=== PATIENT | female | born 1965 | race Caucasian/White ===

== ENCOUNTER 2025-01-23 11:53 | Emergency (ER) | payer OTHER, SELFPAY ==
--- OUTSIDE RECORDS SUMMARY | 2023-09-11 04:00 | XMS_ITS ---
Author Organization [facility] Address [address] [place], [place] [phone] Care Team Providers Care Folder Tier Name Role Phone Codey Raines DO Unavailable [phone] Migration, Provider Unavailable Unavailable REASON FOR VISIT EMR-Keenan Encounters Encounter Location Date Provider Diagnosis [facility] [address] [place], [place] [phone] 09/11/2023 Provider Migration Plan Of Treatment Next Appt Details Provider Name:Letitia arora, 01/29/2025 08:30:00 AM, [address], [facility] [address], [place], [place], [phone], Provider Name:Codey morales, 08/08/2025 09:15:00 AM, [address], [facility] [address], [place], [place], [phone], Progress Notes * GAIL BRYANTOB:[birth year] (59 yo F)Acc No.[id number]:09/11/2023 Patient: FRANCIA BUCHANANIL :1965 A ge:58 Y S ex:Female Address:[address] [facility] [address] Subjective: * Chief Complaints: * E MR-Keenan * Medical History: * Surgical History: * Hospitalization/Major Diagno stic Procedure: * Medications: Objective: * Vitals: * Physical Examination: Assessment: Plan: * Treatment: * Procedure Codes: * * Date:
--- OUTSIDE RECORDS SUMMARY | 2023-09-12 04:00 | XMS_ITS ---
Author Organization [facility] Address [address] [place], [place] [phone] Care Team Providers Care Automation And Controls Manager Name Role Phone Codey Raines DO Unavailable [phone] Migration, Provider Unavailable Unavailable Allergies Allergen (clinical drug ingredient) Drug/Non Drug Allergy documented on EMR Reaction Allergy Type Onset Date Status Substance with sulfonamide structure and antibacterial mechanism of action (substance) Sulfa Antibiotics Unknown Drug Allergy 12/09/2022 Active REASON FOR VISIT EMR-Keenan Medications Medication SIG (Take, Route, Frequency, Duration) Notes Start Date End Date Status Omeprazole 20 MG Oral 12/09/2022 Ac tive Mounjaro 7.5 MG/0.5ML Subcutaneous 12/09/2022 Active ATORVASTATIN *Reorder from [employer] for eRx and Interaction Alerts* 12/09/2022 Active Encounters Encounter Location Date Provider Diagnosis [facility] [address] [place], [place] [phone] 09/12/2023 Provider Migration Plan Of Treatment Next Appt Details Provider Name:Letitia arora, 01/29/2025 08:30:00 AM, [address], [address], [place], [place], [phone], Provider Name:Codey morales, 08/08/2025 09:15:00 AM, [address], [address], [place], [place], [phone], Progress Notes * GAIL BRYANTOB:[birth year] (59 yo F)Acc No.[id number]:09/12/2023 Patient: Boo NAPOLEON BLACK :1965 A ge:58 Y S ex:Female Address:[facility] [address], [facility] [address] Subjective: * Chief Complaints: * E MR-Keenan * Medical History: * Surgical History: * Hospitalization/Major Diagno stic Procedure: * Medications: T akingOmeprazole 20 MG Capsule Delayed Release Oral Mounjaro 7.5 MG/0.5ML Solution Pen-injector Subcutaneous ATORVASTATIN , Notes to Pharmacist: *Reorder from [facility] for eRx and Interaction Alerts*Taking Omeprazole 20 MG Capsule Delayed Release Oral Taking Mounjaro 7.5 MG/0.5ML Solution Pen-injector Subcutaneous Taking ATORVASTATIN , Notes to Pharmacist: *[facility] and Interaction Alert[facility]* * Allergies: S ulfa Antibiotics: Allergy - Onset Date 12/09/2022 Objective: * Vitals: * Physical Examination: Assessment: Plan: * Treatment: * Procedure Codes: * * Date:
--- OUTSIDE RECORDS SUMMARY | 2024-01-12 10:30 | XMS_ITS ---
Author Organization [facility] Address [address] [facility] [address] [place], [place] [phone] Care Team Providers Care Musical Engineer Name Role Phone Codey Raines DO Unavailable [phone] REASON FOR VISIT po-sleeve 3 years 2 months Encounters Encounter Location Date Provider Diagnosis [facility] [address] [facility] [address] [place], [place] [phone] 01/12/2024 Codey Raines Vitamin deficiency, unspecified E56.9 ; Postsurgical malabsorption, not elsewhere classified K91.2 ; Other specified personal risk factors, not elsewhere classified Z91.89 and S/P bariatric surgery Z98.84 Assessments Encounter Date Diagnosis (ICD Code) Assessment Notes Treatment Notes Treatment Clinical Notes Section Notes 01/12/2024 Vitamin deficiency, unspecified (ICD-10 - E56.9) 01/12/2024 Postsurgical malabsorption, not elsewhere classified (ICD-10 - K91.2) 01/12/2024 Other specified personal risk factors, not elsewhere classified (ICD-10 - Z91.89) 01/12/2024 S/P bariatric surgery (ICD-10 - Z98.84) Plan Of Treatment Pending Test Test Name Order Date LIPID PANEL, STANDARD (7600) 01/12/2024 IRON, TIBC AND FERRITIN PANEL (5616) COMPREHENSIVE METABOLIC PANEL (16469) CBC (H/H, RBC, INDICES, WBC, PLT) (1759) 01/12/2024 HEMOGLOBIN A1c (496) 01/12/2024 VITAMIN B12/FOLATE, SERUM PANEL (7065) 0 01/12/2024 TSH (899) 01/12/2024 VITAMIN D,25-OH,TOTAL,IA (31590) 024 ZINC (945) 01/12/2024 VITAMIN B1 (THIAMINE), SERUM/PLASMA, LC/ MS/MS (60639) 01/12/2024 Next Appt Details Provider Name:Letitia Taylor ulysses, 01/29/2025 08:30:00 AM, [address], [address], [place], [place], [phone], Provider Name:Codey Perfecto morales, 08/08/2025 09:15:00 AM, [address], [address], [place], [place], [phone], Progress Notes * ERMAGAIL AguilarOB:[birth year] (59 yo F)Acc No.[id number]:01/12/2024 Patient: Boo BRIANNAPOLEON PADILLA Provider: Boo Raines DO :1965 A ge:58 Y S ex:Female Date:01/12/2024 Address:[address] [place] [address] Subjective: * Chief Complaints: * 1 . Po-sleeve 3 years 2 months. * HPI: H istory of Present Illness: Visit: Lisandro natali since surgery: 3 Years 2 Months S urgical Procedure: S leeve Gastrectomy D ate of Surgery: 0 11/11/2020 Interval History: T he patient is a f emale presenting for bariatric postoperative follow-up. Since our last follow up she had bariatric labs drawn. P atient h as not been admitted to the hospital H as patient undergone any post-bariatric surgical operations or interventions? N o . P re-surgical Weight: 2 42 lb L ast Visit Weight: 1 63 lb T KEN'S WEIGHT: l b T otal Weight Loss (TBW): l b > Daily fluid/water intake = 4 0-60 ounces > Protein Intake is a dequate > Physical Activity: E xercising 1-3x/week a nd walking l ess than 5,000 steps/day COMORBIDITY EVALUATION : SHAWN Yes - using CPAP . GERD No . Hypertension Yes , - o ff BP medications Hyperlipidemia Yes - taking atorvastatin (Lipitor) , Diabetes Yes - Off diabetic medications , VTE No , Is Patient attending any support groups E ncouraged attendance . * ROS: G eneral / Constitutional: Chills d enies. F ever d enies. A llergy / Immunology: Blistering skin d enies. H EENT: Difficulty in swallowing d enies. N karla congestion?denies. E ndocrine: Cold intolerance d enies. E xcessive thirst d enies. R espiratory: Chest pain d enies. C ough d enies. ? C ardiovascular: Chest pain d enies. P alpitations d enies. W eakness d enies. G astrointestinal: Abdominal pain d enies. D iarrhea d enies. J aundice d enies. R ectal bleeding d enies. G enitourinary: Blood in the urine d enies. D ifficulty urinating d enies. M usculoskeletal: Limping gait d enies. W eakness d enies. B urning pain in lower legs d enies. P sychiatric: Auditory / visual hallucinations d enies. S ubstance abuse d enies. S uicidal thoughts d enies. R eview of Systems: Fever/Chills: N o. E levated HR: N o. B loating/hiccups: N o. S OB/cough/wheezing: N o. L ower extremity pain or swelling: N o.?Decreased UOP: N o. B owel function N ormal BMs without complaint. ? * Medical History: Objective: * Vitals: Past Vitals:* 01/12/2024 Wt:151, BMI:25.12, BP:122/83 * Examination: P hysical Exam: General: W ell-developed a dult in no acute distress Head: A traumatic, normocephalic . Neck: S upple, trachea midline. No cervical lymphadenopathy . Chest: Unlabored breathing without respiratory distress Heart: Normal rate and regular rhythm Abdomen: Soft, non-tender, Bowel sounds normal, No masses, no organomegaly Extremities: Warm and well perfused Psych G ood insight, good judgement, appropriate affect . Integumentary: W arm and dry . R eviewed any recent lab &/or imaging results w ith patient during visit today. Assessment: * Assessment: 1. V itamin deficiency, unspecified - E56.9 2 . P ostsurgical malabsorption, not elsewhere classified - K91.2 3 . O ther specified personal risk factors, not elsewhere classified - Z91.89 4 . S /P bariatric surgery - Z98.84 ? Plan: * Treatment: 2. P ostsurgical malabsorption, not elsewhere classified L AB: LIPID PANEL, STANDARD (7600) L AB: IRON, TIBC AND FERRITIN PANEL (5616) L AB: COMPREHENSIVE METABOLIC PANEL (82024) L AB: CBC (H/H, RBC, INDICES, WBC, PLT) (1759) L AB: HEMOGLOBIN A1c (496) L AB: VITAMIN B12/FOLATE, SERUM PANEL (7065) L AB: TSH (899) L AB: VITAMIN D,25-OH,TOTAL,IA (14182) L AB: ZINC (945) L AB: VITAMIN B1 (THIAMINE), SERUM/PLASMA, LC/MS/MS (37701) 3. O ther specified personal risk factors, not elsewhere classified L AB: LIPID PANEL, STANDARD (7600) L AB: IRON, TIBC AND FERRITIN PANEL (5616) L AB: COMPREHENSIVE METABOLIC PANEL (75914) L AB: CBC (H/H, RBC, INDICES, WBC, PLT) (1759) L AB: HEMOGLOBIN A1c (496) L AB: VITAMIN B12/FOLATE, SERUM PANEL (7065) L AB: TSH (899) L AB: VITAMIN D,25-OH,TOTAL,IA (17030) L AB: ZINC (945) L AB: VITAMIN B1 (THIAMINE), SERUM/PLASMA, LC/MS/MS (84369) 4. S /P bariatric surgery L AB: LIPID PANEL, STANDARD (7600) L AB: IRON, TIBC AND FERRITIN PANEL (5616) L AB: COMPREHENSIVE METABOLIC PANEL (38493) L AB: CBC (H/H, RBC, INDICES, WBC, PLT) (1759) L AB: HEMOGLOBIN A1c (496) L AB: VITAMIN B12/FOLATE, SERUM PANEL (7065) L AB: TSH (899) L AB: VITAMIN D,25-OH,TOTAL,IA (11406) L AB: ZINC (945) L AB: VITAMIN B1 (THIAMINE), SERUM/PLASMA, LC/MS/MS (73468) Forms: * Billing Information: * Visit Code: * Procedure Codes: * Electronic signature of Henri Raines DO, [id number] on 01/23/2025 at 01:54 PM CDT Sign off status: Pending * Provider: Boo Raines DO Date: 0 01/12/2024 Generated for Myles summers/Dulce/Alvin on: 1 01:54 PM CDT History and Physical Notes * HPI (History of Present Illness) Category Sub-Category Detail Notes Category Not es History of Present Illness Visit: Time since surgery:: 3 Years 2 Months Surgical Procedure:: Sleeve Gastrectomy Date of Surgery:: 11/11/2020 Interval History: The patient is a: female prese nting for bariatric postoperative follow-up. Since our last follow up she had bariatric labs d shayna. Patient: has not been admitted to the hospital Has patient undergone any po st-bariatric surgical operations or interventions?: No . Pre-surgical Weight:: 242 lb Last Visit Weight:: 163 lb TODAY'S WEIGHT:: lb Total Weight Loss (TBW):: lb > Daily fluid/water intake =: 40-60 ounc es > Protein Intake is: adequate > Physical Activity:: Exercising 1-3x/we ek and walking: less than 5,000 steps/day COMORBIDITY EVALUATION : SHAWN Yes - using CPAP . GERD No . Hypertension Yes , -: off BP medications Hyperlipidemia Yes - taking atorvastatin (Lipit or) , Diabetes Yes - Off diabetic medications , VTE No , Is Patient attending any support groups Encourag ed attendance: . Examination Category Sub-Category Detail Notes Category Not es Physical Exam General: Well-developed: adult in no acute distress Reviewed any recent lab &/or imaging results with patient during visit today. Chest: Unlabored breath ing without respiratory distress Abdomen: Soft, non-tender, [place] wel sounds normal, No masses, no organomegaly Extremities: Warm and well perfused Heart: Normal rate and regular rhythm Psych Good insight, good j udgement, appropriate affect: . Integumentary: Warm and dry: . Head: Atraumatic, normocephalic: . Neck: Supple, trachea midl ine. No cervical lymphadenopathy: .
--- OUTSIDE RECORDS SUMMARY | 2024-07-15 04:00 | XMS_ITS ---
Author Organization [facility] Address [address] [place] [address] Care Team Providers Care Costume Shop Manager Name Role Phone MaryEric simon Unavailable [phone] Migration, Provider Unavailable Unavailable REASON FOR VISIT EMR-Keenan Encounters Encounter Location Date Provider Diagnosis [facility] [place] [address] [facility] [place] [phone] 07/15/2024 Prov ider Migration Plan Of Treatment No Information Progress Notes * GAIL BRYANTOB:[birth year] (59 yo F)Acc No.[id number]:07/15/2024 Patient: Boo NAPOLEON BLACK :1965 A ge:59 Y S ex:Female Address:[facility] [address] [facility] [address] Subjective: * Chief Complaints: * E MR-Keenan * * Date:
--- OUTSIDE RECORDS SUMMARY | 2024-07-16 04:00 | XMS_ITS ---
Author Organization [facility] Address [address] [place], [place] [address] Care Team Providers Care Gas Cutting Machine Operator Name Role Phone Eric Lang Unavailable [phone] Migration, Provider Unavailable Unavailable Allergies Allergen (clinical drug ingredient) Drug/Non Drug Allergy documented on EMR Reaction Allergy Type Onset Date Status Substance with sulfonamide structure and antibacterial mechanism of action (substance) Sulfa Antibiotics Unknown Drug Allergy Active REASON FOR VISIT EMR-Keenan Medications Medication SIG (Take, Route, Frequency, Duration) Notes Start Date End Date Status Atorvastatin Calcium 20 MG Tablet Oral 08/31/2022 Active atorvastatin *Reorder from [employer] for eRx and Interaction Alerts* 08/31/2022 Active buPROPion HCl ER (XL) 150 MG Tablet Extended Release 24 Hour Oral 08/31/2022 Active OneTouch Verio Strip In Vitro 08/31/2022 Active Social History Social History Additional Details Category Social Info Options Details Migrated Social History Migrated Social History Alcohol Intake: Occasional 08/31/2022,Tobacco Years: Never smoker 08/28/2022 Encounters Encounter Location Date Provider Diagnosis [facility] [address] [facility] [place] [phone] 07/16/2024 Prov ider Migration Plan Of Treatment No Information Progress Notes * GAIL BRYANTOB:[birth year] (59 yo F)Acc No.[id number]:07/16/2024 Patient: NAPOLEON BUCHANAN :1965 A ge:59 Y S ex:Female Address:[address] [place] [address], [address] Subjective: * Chief Complaints: * E MR-Keenan * Medical History: Problems: Anxiety Diabetes mellitus Endometrial hyperplasia Human papilloma virus infection Hypertensive disorder Menometrorrhagia Obesity Premenstrual dysphoric disorder * Keg Filler History: M igrated GynHistory M igrated GYNHistory:: Abnormal Pap: N Modified Date:08/31/2022,Age at First Child: 23 Modified Date:08/31/2022,Age at Menarche: 49 Modified Date:08/28/2022, Control at End of Visit: Ablation Modified Date:08/31/2022,Current Control Method: None Modified Date:08/31/2022,Date of LMP: 09/20/2012 Modified Date:08/28/2022,Date of Last Mammogram: 05/29/2021 Modified Date:08/28/2022,Date of Last Pap Smear: 11/30/2016 Modified Date:08/28/2022,Desired Control Method: Ablation Modified Date:08/31/2022,HPV Vaccine: N Modified Date:08/28/2022,Hormone Replacement Therapy: N Modified Date:08/31/2022,On BCPs at Conception: N Modified Date:08/31/2022,Post Menopausal Bleeding: N Modified Date:08/31/2022,STIs/STDs: N Modified Date:08/28/2022,Sexual Problems: N Modified Date:08/31/2022,Sexually Active: Y Modified Date:08/28/2022 . * Surgical History: Bariatric surgery Colonoscopy Colposcopy (538123429) Endometrial ablation Extraction of wisdom tooth (94013865) Hysteroscopy x3 Marsupialization of bartholin's gland (941219262) Procedure on gallbladder (837499100) * Family History: M igrated Family History: Unspecified Relation: Hypercholesterolemia , Osteoporosis . F ather: Family history of diabetes mellitus type 2 , Heart disease . M other: Hypertensive disorder , Osteoporosis . P aternal Grandfather: Heart disease . S ister: Family history of diabetes mellitus type 2 . * Social History: M igrated Social History: M igrated Social History: Alcohol Intake: Occasional 08/31/2022,Tobacco Years: Never smoker 08/28/2022. * Medications: T akingAtorvastatin Calcium 20 MG Tablet Oral buPROPion HCl ER (XL) 150 MG Tablet Extended Release 24 Hour Oral OneTouch Verio Strip In Vitro atorvastatin , Notes to Pharmacist: *Reorder from [facility] for eRx and Interaction Alerts*Taking Atorvastatin Calcium 20 MG Tablet Oral Taking buPROPion HCl ER (XL) 150 MG Tablet Extended Release 24 Hour Oral Taking OneTouch Verio Strip In Vitro Taking atorvastatin , Notes to Pharmacist: *Reorder from [facility] for eRx and Interaction Alerts* * Allergies: S ulfa Antibiotics: Allergy * * Date:
--- OUTSIDE RECORDS SUMMARY | 2025-01-10 09:00 | XMS_ITS ---
Author Organization [facility] Address [address] [place], [place] [id number] Care Team Providers Care Remedial Project Manager Name Role Phone Codey Raines DO Unavailable [phone] Allergies Allergen (clinical drug ingredient) Drug/Non Drug Allergy documented on EMR Reaction Allergy Type Onset Date Status Latex Latex rash, itching Allergy Active Substance with sulfonamide structure and antibacterial mechanism of action (substance) Sulfa Antibiotics Unknown Drug Allergy 12/09/2022 Active Medications Medication SIG (Take, Route, Frequency, Duration) Notes Start Date End Date Status Mounjaro 10 MG/0.5ML as directed Subcutaneous 12/09/2022 Unknown ATORVASTATIN *Reorder from [employer] for eRx and Interaction Alerts* 12/09/2022 Unknown Calcium Unknown Omeprazole 20 MG Oral 12/09/2022 Un known Levsin 0.125 MG 1 tablet as needed Orally every 8 hrs; Duration: 30 days 01/12/2025 02/11/2025 Active Multivitamin - 1 tablet Orally Once a day Unknown buPROPion HCl ER (XL) 150 MG 1 tablet in the morning Orally Once a day Unknown Problems Problem Type SNOMED Code ICD Code Onset Dates Problem Status W/U Status Risk Notes Problem Vitamin deficiency (87217993) Vitamin deficiency, unspecified (E56.9) Active confirmed Problem Post-surgical malabsorption (disorder) (937579340) Postsurgical malabsorption, 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) Active confirmed Vital Signs Temperature 97.8 degrees Fahrenheit 01/11/20 25 Blood pressure systolic 166 mm Hg 01/11/20 25 Blood pressure diastolic 103 mm Hg 025 Heart Rate 100 /min 01/10/2025 Height 65.00 in 01/10/2025 Weight 153 lbs 01/10/2025 BMI 25.46 kg/m2 01/10/2025 Oximetry 98 % 01/10/2025 Height-cm 165.1 cm 01/10/2025 Weight-kg 69.4 kg 01/10/2025 Encounters Encounter Location Date Provider Diagnosis [facility] [address] [place], [place] [id number] 01/10/2025 Codey Olu Vitamin deficiency, unspecified E56.9 ; Postsurgical malabsorption, not elsewhere classified K91.2 ; Other specified personal risk factors, not elsewhere classified Z91.89 ; S/P bariatric surgery Z98.84 and Overweight E66.3 Assessments Encounter Date Diagnosis (ICD Code) Assessment Notes Treatment Notes Treatment Clinical Notes Section Notes 01/10/2025 Vitamin deficiency, unspecified (ICD-10 - E56.9) 01/10/2025 Postsurgical malabsorption, not elsewhere classified (ICD-10 - K91.2) 01/10/2025 Other specified personal risk factors, not elsewhere classified (ICD-10 - Z91.89) 01/10/2025 S/P bariatric surgery (ICD-10 - Z98.84) 01/10/2025 Overweight (ICD-10 - E66.3) Plan Of Treatment Medication Medication Name Sig Start Date Stop Date Notes Levsin 0.125 MG 1 tablet as needed O rally every 8 hrs; Duration: 30 days 01/12/2025 02/11/2025 Pending Test Test Name Order Date LIPID PANEL, STANDARD (7600) 01/10/2025 IRON, TIBC AND FERRITIN PANEL (5616) COMPREHENSIVE METABOLIC PANEL (78091) CBC (H/H, RBC, INDICES, WBC, PLT) (1759) 01/10/2025 HEMOGLOBIN A1c (496) 01/10/2025 VITAMIN B12/FOLATE, SERUM PANEL (7065) 0 01/10/2025 TSH (899) 01/10/2025 VITAMIN D,25-OH,TOTAL,IA (44520) 025 ZINC (945) 01/10/2025 VITAMIN B1 (THIAMINE), SERUM/PLASMA, LC/ MS/MS (37096) 01/10/2025 Next Appt Details Follow Up: 6 Months, Reason: Provider Name:Letitia Haddad Brandon arora, 01/29/2025 08:30:00 AM, [address] [facility] [address], [place], [place], [phone], Provider Name:Codey Perfecto morales, 08/08/2025 09:15:00 AM, [address], [place], [place], [phone], Procedure Notes * Category Sub-Category Detail Notes Post Operative Plan Education: Emphasized e xercise and activity expectations; goal of 10,000 steps/day & 150 active min/wk. Reiterated importance of drinking at least 64 oz fluid & taking in at least 60-90g protein daily: . Patient understands the bridget y postop vitamin requirements: MVI, calcium + Vit D (1,500IU), folate 100mg, and any other vitamin supplements as needed based on laboratory monitoring. Reviewed appropriate eating habits and food choices: . Reminded patient that surger y is not a magic fix for weight loss: it is hard work and requires many behavioral changes to be successful. Encouraged patient follow with their PCP regularly, especially regarding medication changes: ; to see a counselor if mental health concerns arise; and continue to follow-up with bariatric elevator operator. There are no barriers to education today: . DISPOSITION: Return in: 6 months for follo w-up visit. Patient also instructed to h ave repeat labs drawn prior to next postop follow-up visit; orders placed: CBC w/diff, CMP, Vit B1, Folate, Vit B12, iron/TIBC, lipid panel, 25-Hydroxy, HbA1C, zinc. The patient is encouraged to call the clinic with any questions or concerns in the meantime. The patient demonstrates understanding and is amendable to the above outlined plan: . Progress Notes * GAIL BRYANTOB:[birth year] (59 yo F)Acc No.[id number]:01/10/2025 Patient: FRANCIA BUCHANANIL Provider: Boo Raines DO :1965 A ge:59 Y S ex:Female Date:01/10/2025 Address:[facility] [address], [address], [id number] Subjective: * Chief Complaints: * * HPI: H istory of Present Illness: Visit: Raghu hurst since surgery: 4 Years 2 Months S urgical Procedure: S leeve Gastrectomy D ate of Surgery: 0 11/11/2020 Interval History: T rashaad patient is a f emale presenting for bariatric postoperative follow-up. Since our last follow- up, raghu hines been taking bariatric vitamins and raghu hines not had bariatric vitamin labs drawn. > INTERVAL ISSUES/CONCERNS: n one H as patient been admitted to the hospital??No H as patient undergone any post-bariatric surgical operations or interventions? N o P re-surgical Weight: 2 42 lb L ast Visit Weight: 1 51 lb T KEN'S WEIGHT: 1 53 lb T otal Weight Loss (TBW): 8 9 lb % TBW Lost: 3 6.8 % > Daily fluid/water intake = 4 0-60 ounces > Protein Intake is a dequate > Physical Activity: W alking less than 10,000 steps/day COMORBIDITY EVALUATION : SHAWN Yes - no longer requiring CPAP at night following weight loss s/p bariatric surgery GERD No Hypertension No Hyperlipidemia No Diabetes Yes - No longer requiring medication for diabetes s/p bariatric surgery VTE No Is Patient attending any support groups E ncouraged attendance . Does patient take any medications for weight loss? - N o * ROS: G eneral / Constitutional: Chills [...] BMs without complaint. ? * Medical History: A nxiety, Arthritis, Gastroesophageal reflux disease, Obstructive sleep apnea, Post operative nausea and vomiting, Skin cancer, basal cell, Hyperlipidemia. * Surgical History: L ap Sleeve Gastrectomy, Dr. Raines 11/11/2020, Cholecystectomy 2009. * Medications: U nknown Multivitamin - Tablet 1 tablet Orally Once a day , Unknown buPROPion HCl ER (XL) 150 MG Tablet Extended Release 24 Hour 1 tablet in the morning Orally Once a day , Unknown Calcium , Unknown Omeprazole 20 MG Capsule Delayed Release Oral , Unknown Mounjaro 10 MG/0.5ML Solution Pen-injector as directed Subcutaneous , Unknown ATORVASTATIN , Notes to Pharmacist: *Reorder from [facility] for eRx and Interaction Alerts* * Allergies: S ulfa Antibiotics: Allergy - Onset Date 12/09/2022, Latex: rash, itching. Objective: * Vitals: W t:153, Ht:65.00, BMI:25.46, Oxygen sat %:98, HR:100, BP:166/103, Temp:97.8, Wt-k.4, Ht-cm:165.1, Body Surface Area:1.78. Past Vitals:* 01/12/2024 Wt:151, BMI:25.12, BP:122/83 * [...] during visit today. Assessment: * Assessment: 1. P ostsurgical malabsorption, not elsewhere classified - K91.2 (Primary) 2 .?Vitamin deficiency, unspecified - E56.9 3 . O ther specified personal risk factors, not elsewhere classified - Z91.89 4 . S /P bariatric surgery - Z98.84 5. O verweight - E66.3 Plan: * Treatment: 2. V itamin deficiency, unspecified L AB: LIPID PANEL, STANDARD (7600) L AB: IRON, TIBC AND FERRITIN PANEL (5616) L AB: COMPREHENSIVE METABOLIC PANEL (69758) L AB: CBC (H/H, RBC, INDICES, WBC, PLT) (1759) L AB: HEMOGLOBIN A1c (496) L AB: VITAMIN B12/FOLATE, SERUM PANEL (7065) L AB: TSH (899) L AB: VITAMIN D,25-OH,TOTAL,IA (40824) L AB: ZINC (945) L AB: VITAMIN B1 (THIAMINE), SERUM/PLASMA, LC/MS/MS (46318) 3. O ther specified personal risk factors, not elsewhere classified L AB: LIPID PANEL, STANDARD (7600) L AB: IRON, TIBC AND FERRITIN PANEL (5616) L AB: COMPREHENSIVE METABOLIC PANEL (92483) L AB: CBC (H/H, RBC, INDICES, WBC, PLT) (1759) L AB: HEMOGLOBIN A1c (496) L AB: VITAMIN B12/FOLATE, SERUM PANEL (7065) L AB: TSH (899) L AB: VITAMIN D,25-OH,TOTAL,IA (63462) L AB: ZINC (945) L AB: VITAMIN B1 (THIAMINE), SERUM/PLASMA, LC/MS/MS (42605) 4. S /P bariatric surgery L AB: LIPID PANEL, STANDARD (7600) L AB: IRON, TIBC AND FERRITIN PANEL (5616) L AB: COMPREHENSIVE METABOLIC PANEL (91999) L AB: CBC (H/H, RBC, INDICES, WBC, PLT) (1759) L AB: HEMOGLOBIN A1c (496) L AB: VITAMIN B12/FOLATE, SERUM PANEL (7065) L AB: TSH (899) L AB: VITAMIN D,25-OH,TOTAL,IA (46940) L AB: ZINC (945) L AB: VITAMIN B1 (THIAMINE), SERUM/PLASMA, LC/MS/MS (61629) * Procedures: P ost Operative Plan: Education: E mphasized exercise and activity expectations; goal of 10,000 steps/day & 150 active min/wk. Reiterated importance of drinking at least 64 oz fluid & taking in at least 60-90g protein daily . P atient understands the daily postop vitamin requirements: MVI, calcium + Vit D (1,500IU), folate 100mg, and any other vitamin supplements as needed based on laboratory monitoring. Reviewed appropriate eating habits and food choices . R eminded patient that surgery is not a magic fix for weight loss: it is hard work and requires many behavioral changes to be successful. Encouraged patient follow with their PCP regularly, especially regarding medication changes ; t o see a counselor if mental health concerns arise; and continue to follow-up with bariatric elevator operator. There are no barriers to education today . DISPOSITION: R eturn in 6 months for follow-up visit. P atient also instructed to have repeat labs drawn prior to next postop follow-up visit; orders placed: CBC w/diff, CMP, Vit B1, Folate, Vit B12, iron/TIBC, lipid panel, 25-Hydroxy, HbA1C, zinc. The patient is encouraged to call the clinic with any questions or concerns in the meantime. The patient demonstrates understanding and is amendable to the above outlined plan . U pper GI if symptons persist. * Follow Up: 6 Months * Billing Information: * Visit Code: 80359 Office Visit, Est Pt., Level 4. * Procedure Codes: * Electronic signature of Henri Raines DO, [id number] on 01/23/2025 at 01:53 PM CDT Sign off status: Pending * Provider: Boo Raines DO Date: 0 01/10/2025 Generated for Myles summers/Dulce/Bryceitting on: 01:53 PM CDT History and Physical Notes * HPI (History of Present Illness) Category Sub-Category Detail Notes Category Not es History of Present Illness Visit: Time since surgery:: 4 Years 2 Months Surgical Procedure:: Sleeve Gastrectomy Date of Surgery:: 11/11/2020 Interval History: The patient is a: female prese keiing for bariatric postoperative follow-up. Since our last follow-up, they: have been taking bariatri c vitamins and they: have not had bariatric vitami n labs drawn. > INTERVAL ISSUES/CONCERNS:: none Has patient been admitted to the [facility]?: No Has patient undergone any po st-bariatric surgical operations or interventions?: No Pre-surgical Weight:: 242 lb Last Visit Weight:: 151 lb TODAY'S WEIGHT:: 153 lb Total Weight Loss (TBW):: 89 lb %TBW Lost:: 36.8 % > Daily fluid/water intake =: 40-60 ounc es > Protein Intake is: adequate > Physical Activity:: Walkin g less than 10,000 steps/day COMORBIDITY EVALUATION : SHAWN Yes - no longer requ iring CPAP at night following weight loss s/p bariatric surgery GERD No Hypertension No Hyperlipidemia No Diabetes Yes - No longer requ iring medication for diabetes s/p bariatric surgery VTE No Is Patient attending any support groups Encour ed attendance: . Does patient take any medica tions for weight loss? -: No Examination Category Sub-Category Detail Notes Category Not [...]
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
[2025-01-23 11:59] VITALS: BP 150/78; PULSE 106; RESP 18; TEMP 36.5; O2SAT 98
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
[2025-01-23 13:37] VITALS: BP 138/72; PULSE 78; RESP 18; O2SAT 98
--- OUTSIDE RECORDS SUMMARY | 2025-01-23 13:53 | XMS_ITS | Encounter Summary ---
Author Organization [facility] Address [address] Attn: [place] [address] Care Team Providers Care Land Surveyor Manager Name Role Phone Juan Smith MD Primary Care Provider Encounter Details Date Type Department Care Team (Late st Contact Info) Description 10/28/1990 Outpatient Historical Po Das MD NO ADDRESS ON FILE Social History Tobacco Use Types Packs/Day Years Used Date Smoking Tobacco: Never Assessed Comments Unknown Sex and Gender Information Value Date Recorded Sex Assigned at Not on file Legal Sex Female 3:53 AM ACADEMIC GUIDANCE SPECIALIST Gender Identity Not on file Sexual Orientation Not on file documented as of this encounter Plan of Treatment Upcoming Encounters Date Type Department Care Team (Late st Contact Info) Description 03/29/2025 9:00 AM ACADEMIC GUIDANCE SPECIALIST Office Visit [facility] [address] [facility] [address] [place] [phone] Juan Smith MD [address] [place], [place] [address] [place] [address] 09/20/2025 11:00 AM CDT Office Visit [facility] [address] [facility] [address], [place] [address] Juan Smith MD [address] [place], [place] [address] [place] [address] documented as of this encounter Visit Diagnoses Not on filedocumented in this encounter Care Teams Land Surveyor Manager Relationship Specialty Start Date End Date Juan Smith MD [address] [place] [phone] PCP - General 10/07/07 documented as of this encounter
--- OUTSIDE RECORDS SUMMARY | 2025-01-23 13:53 | XMS_ITS | Encounter Summary ---
Author Organization [facility] Address [address] [facility] Attn: [place] [address] Care Team Providers Care Inspector [employer] Name Role Phone Juan Smith MD Primary Care Provider Encounter Details Date Type Department Care Team (Late st Contact Info) Description 12/27/1990 Outpatient Historical Po Das MD NO ADDRESS ON FILE Social History Tobacco Use Types Packs/Day Years Used Date Smoking Tobacco: Never Assessed Comments Unknown Sex and Gender Information Value Date Recorded Sex Assigned at Not on file Legal Sex Female 3:53 AM CHEF & OWNER Gender Identity Not on file Sexual Orientation Not on file documented as of this encounter Plan of Treatment Upcoming Encounters Date Type Department Care Team (Late st Contact Info) Description 03/29/2025 9:00 AM CHEF & OWNER Office Visit [facility] [address] [facility] [address] [place] [phone] Juan Smith MD [address] [place], [place] [address] [place] [address] 09/20/2025 11:00 AM CDT Office Visit [facility] [address] [facility] [address], [place] [address] Juan Smith MD [address] [place], [place] [address] [place] [address] documented as of this encounter Visit Diagnoses Not on filedocumented in this encounter Care Teams Inspector [employer] Relationship Specialty Start Date End Date Juan Smith MD [address] [place] [id number] PCP - General 10/07/07 documented as of this encounter
--- OUTSIDE RECORDS SUMMARY | 2025-01-23 13:53 | XMS_ITS | Clinical Summary ---
Author Organization [facility] Address [address] [place] [id number] Care Team Providers Care Manager Name Role Phone Juan Smith MD Primary Care Provider [phone] Allergies Active Allergy Reactions Criticality Noted Date Comments Diclofenac Other (See comments),Unknown Low 04/05/2012 Stomach pain Stomach pain Latex Anxiety,Itching,Rash Medium 11/22/2020 Naltrexone-Bupropion Dizziness Low 11/30/2016 Sulfa (Sulfonamide Antibiotics) Anaphylaxis High 06/20/2004 Medications atorvastatin (LIPITOR) 20 mg tablet Take 1 tablet (20 mg total) by mouth nightly 2 Active OneTouch Verio test strips strip 2 (two) times a day 2 Active buPROPion XL (WELLBUTRIN XL) 150 mg 24 hr tablet 2 Active clotrimazole-be tamethasone (LOTRISONE) cream Apply topically 2 (two) times a day 0 Active omeprazole (PriLOSEC) 20 mg capsule 2 Active calcium carbonate-vitam in D3 1500 mg (600 mg elemental) -200 units per tablet Take by mouth Active ALPRAZolam (XANAX) 0.25 mg tablet 3 Active Mounjaro 7.5 mg/0.5 mL pen injector 10 mg 3 Active tiZANidine (ZANAFLEX) 4 mg tablet Take 1 tablet (4 mg total) by mouth 2 (two) times a day as needed 3 Active cetirizine HCl (ZYRTEC ORAL) Take by mouth Ac tive Active Problems Problem Noted Date Diagnosed Date Primary osteoarthritis of one knee, right 2021 Ingrowing nail 09/04/2016 Type 2 diabetes mellitus wit hout complication, without long-term current use of insulin 01/24/2016 Severe obesity (BMI 35.0-39.9) with comorbidity 07/11/2015 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/2014 Plantar fasciitis 11/19/2014 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 Primary localized osteoarthrosis of ankle and fo ot 09/28/2012 Foot pain 02/25/2012 Posterior tibial tendonitis 02/25/2012 Surgical History Surgery Date Site/Laterality Comments BARIATRIC SURGERY 04/19/2020 - 04/18/2021 N/A Gastric Sleeve Medical History Medical History Date Comments Anxiety Hypertension Sleep apnea, obstructive Hypercholesteremia Family History Medical History Relation Name Comments Cancer Daughter Teo Diabetes Father Michele Heart disease Father Michele Hypertension Father Michele Arthritis Mother Gloria Hypertension Mother Gloria Arthritis Sister Gloria Hinson Cancer Sister Gloria Hinson Diabetes Sister Gloria Hinson Hypertension Sister Gloria Hinson Relation Name Status Comments Daughter Teo Bautista Mother Gloria Sister Gloria Hinson Social History Tobacco Use Types Packs/Day Years Used Date Smoking Tobacco: Never Smokeless Tobacco: Never AUDIT-C Answer Date Recorded Q1: How often do you have a drink containing alcohol? Never 08/17/2022 Q2: How many drinks containi ng alcohol do you have on a typical day when you are drinking? Patient does not drink Q3: How often do you have si x or more drinks on one occasion? 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 Not on file Not on file Not on f ile Obstetrics History Last Filed Vital Signs Vital Sign Reading Time Taken Comments Blood Pressure - - Pulse - - Temperature - - Respiratory Rate - - Oxygen Saturation - - Inhaled Oxygen Concentration - - Weight 68.9 kg (152 lb) 04/14/2024 11:30 AM PROCUREMENT ANALYST Height 165.1 cm (5' 5) 04/14/2024 11:30 AM PROCUREMENT ANALYST Body Mass Index 25.29 04/14/2024 11:30 AM PROCUREMENT ANALYST Plan of Treatment Health Maintenance Due Date Last Done Comments Albumin Creatinine Ratio, Urine 1966 Cervical Cancer Screening 1966 Colon Cancer Screening-Colonoscopy 1966 Depression Screening 1966 Hepatitis C Screening 1966 eGFR 1966 Dilated Eye Exam 1966 Foot Exam 1966 Lipid Panel 1966 Hepatitis B Screening 1984 Regular Well Visit/Exam 18-64 1984 Zoster Vaccine (1 of 2) 2016 Pneumococcal vaccine <65 (2 of 2 - PCV) 04/08/2018 04/08/2017 Breast Cancer Screening-Mammogram 07/02/2023 023 Hemoglobin A1C 11/03/2023 05/05/2023, 10/17, 11/12/2021, Additional history exists Covid-19 Vaccine (4 - 2024-2 6 season) 2024 03/11/2021, 07/22/2020, 06/28/2020 Influenza Vaccine (#1) 2024 , 12/30/2020, 12/30/2020, Additional history exists DTaP/Tdap/Td Vaccine (3 - Td or Tdap) 09/24/2030 09/24/2020, 08/01/2009 Insurance CHOICE PLUS [place] [id number] [facility] CHOICE PLUS [place] [phone] Care Teams Manager Relationship Specialty Start Date End Date Juan Smith MD [address] [facility] [address] [place] [address] PCP - General Critical Care Med 09/03/21
--- OUTSIDE RECORDS SUMMARY | 2025-01-23 13:53 | XMS_ITS | Encounter Summary ---
Author Organization [facility] Address [address] [place] [address] Care Team Providers Care Office Helper Name Role Phone Juan Smith MD Primary Care Provider [phone] Encounter Details Date Type Department Care Team (Late st Contact Info) Description 06/05/2003 Outpatient Historical [facility] [place] [facility] [address] [facility] [address] [place] [address] Juan Smith MD [address] [place], [place] [address] [place] [address] Social History Tobacco Use Types Packs/Day Years Used Date Smoking Tobacco: Never Assessed Comments Unknown Sex and Gender Information Value Date Recorded Sex Assigned at Not on file Legal Sex Female 3:53 AM COMPUTER ANALYST SUPERVISOR Gender Identity Not on file Sexual Orientation Not on file documented as of this encounter Plan of Treatment Upcoming Encounters Date Type Department Care Team (Late st Contact Info) Description 03/29/2025 9:00 AM COMPUTER ANALYST SUPERVISOR Office Visit [facility] [place] [facility] [address] [facility] [address] [place] [address] Juan Smith MD [address] [place], [place] [address] [place] [address] 09/20/2025 11:00 AM CDT Office Visit [facility] [place] [facility] [address] [facility] [address] [place] [address] Juan Smith MD [address] [address] documented as of this encounter Visit Diagnoses Not on filedocumented in this encounter Care Teams Office Helper Relationship Specialty Start Date End Date Juan Smith MD [address] [place] [address] PCP - General 10/07/07 documented as of this encounter
--- OUTSIDE RECORDS SUMMARY | 2025-01-23 13:53 | XMS_ITS | Clinical Summary ---
Author Organization [facility] Address [address] [place] [address] Care Team Providers Care Transplanter Orchid Name Role Phone None, Provider MD Primary Care Provider Unavaila ble Allergies Active Allergy Reactions Criticality Noted Date Comments Sulfa Antibiotics Unknown 02/06/2021 Medications atorvastatin 20 MG tablet TAKE 1 TABLET BY MOUTH DAILY (TAKE LATE IN THE DAY) 7 Active buPROPion XL 150 MG 24 hr tablet TAKE 1 TABLET(150 MG) BY MOUTH DAILY DIRECT MAIL CLERK 0 Active omeprazole 20 MG capsule 1 Active omeprazole 40 MG capsule TAKE ONE CAPSULE BY MOUTH DAILY OPEN CAPSULE AND POUR CONTENTS INTO SUGAR FREE JELLO OR FOOD WITH SIMILAR CONSISTENCY 1 Active ONETOUCH VERIO test strip 2 (two) times daily. 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 Localized, primary osteoarth ritis of ankle or foot, unspecified laterality 09/28/2012 Foot pain 02/25/2012 Acquired deformity of foot 02/25/2012 Posterior tibial tendonitis 02/25/2012 Allergic rhinitis 12/02/2011 Sleep apnea 12/21/2006 Pure hypercholesterolemia 09/10/2005 Resolved Problems Problem Noted Date Diagnosed Date Resolved Date Encounter for preventive health examination 02/25/2012 04/14/2021 Immunizations Immunization Administration Dates Next Due Influenza (Generic) 12/30/2020,12/27/2013,2012 Influenza Adult (Generic) 12/30/2020,01/29/2020, 01/29/2020 PFIZER COVID-19 (ORIGINAL FO RMULATION, PURPLE CAP) mRNA, LNP-S, PF, 30 MCG/0.3 ML DOSE 07/22/2020,06/28/2020 Pneumococcal (Pneumovax 23) 04/08/2017 Tdap (Generic) 09/24/2020,08/01/2009 Family History Medical History Relation Comments Cancer Daughter Diabetes Father Heart Disease Father Hypertension Mother Diabetes Sister Relation Status Comments Daughter Father Mother Sister Alive Social History Tobacco Use Types Packs/Day Years Used Date Smoking Tobacco: Never Smokeless Tobacco: Never Alcohol Use Standard Drinks/Week Comments Not Currently 0 (1 standard drink = 0.6 oz pur e alcohol) PHQ-2 Answer Date Recorded PHQ-2 Score - If the patient scores above 3, please move on to questions 3-9 0 04/07/2021 Comments Unknown Sex and Gender Information Value Date Recorded Sex Assigned at Female 02/06/2021 10:13 AM CDT Legal Sex Female 7:17 PM CDT Gender Identity Female 02/06/2021 10:13 AM CDT Sexual Orientation Straight 02/06/2021 10 :13 AM CDT Last Filed Vital Signs Vital Sign Reading Time Taken Comments Blood Pressure 118/72 04/07/2021 11:45 AM INTERACTIVE MEDIA MARKETING STRATEGIST Pulse 96 04/07/2021 11:45 AM INTERACTIVE MEDIA MARKETING STRATEGIST Temperature - - Respiratory Rate - - Oxygen Saturation 98% 02/06/2021 10:05 AM CDT Inhaled Oxygen Concentration - - Weight 88 kg (194 lb) 04/07/2021 11:45 AM INTERACTIVE MEDIA MARKETING STRATEGIST Height 165.1 cm (5' 5) 04/07/2021 11:45 AM INTERACTIVE MEDIA MARKETING STRATEGIST Body Mass Index 32.28 04/07/2021 11:45 AM INTERACTIVE MEDIA MARKETING STRATEGIST Plan of Treatment Health Maintenance Due Date Last Done Comments Cervical Cancer Screening Pap Smear (Age 30 to 64) Every 3 Years 1966 Colorectal Cancer Screening Colonoscopy (10 Years) 1966 Kidney Health Evaluation 1966 Lipid Panel 1966 Annual Physical 1969 Diabetes: Retinopathy Eye Exam 1984 Hepatitis C 1984 Hepatitis B Vaccines (1 of 3 - 19+ 3-dose series) 1985 Cervical Cancer Screening Pap with HPV Testing (Age 30 to 64) Every 5 Years 1996 Cervical Cancer Screening with HPV 1996 Mammogram Screening 2006 Zoster Vaccines (1 of 2) 2016 Pneumococcal Vaccine: 50+ Years (2 of 2 - PCV) 04/08/2018 04/08/2017 Hemoglobin A1C 06/30/2021 12/31/2020, 12/18, 09/24/2020, Additional history exists COVID-19 Vaccine ( - season) 2024 07/22/2020, 07/22/2020, 06/28/2020, Additional history exists Influenza Adult (#1) 2025 12/30/2020, 12/30/2020, 01/29/2020, Additional history exists DTaP, Tdap and Td Vaccines (3 - Td or Tdap) 09/24/2030 09/24/2020, 08/01/2009 Meningococcal B Vaccine Aged Out No l onger eligible based on patient's age to complete this topic Meningococcal Vaccine Aged Out No ernesto karan eligible based on patient's age to complete this topic RSV Immunizations Under 20 Months Aged Out No longer eligible based on patient's age to complete this topic Procedures Procedure Name Priority Date/Time Associated Diagnosis Comments HEMOGLOBIN, GLYCOSYLATED Routine 12/31/2020 from Last 3 Months or Most Recently Relevant to Health Maintenance Results * HEMOGLOBIN, GLYCOSYLATED (12/31/2020) HGB A1C 6.3 % 12/31/2020 us Doc [facility] Final Result from Last 3 Months or Most Recently Relevant to Health Maintenance Insurance Care Teams Transplanter Orchid Relationship Specialty Start Date End Date None, Provider, PCP - General 02/03/21
--- OUTSIDE RECORDS SUMMARY | 2025-01-23 13:53 | XMS_ITS | Encounter Summary ---
Author Organization [facility] Address [address] [place] [address] Care Team Providers Care Setup Technician Name Role Phone Juan Smith MD Primary Care Provider [phone] Encounter Details Date Type Department Care Team (Latest Contact Info) Description 05/06/1999 Outpatient Historical [facility] Juan Smith MD [address] [place], [place] [address] [place] [address] Chest pain, unspecified (Primary Dx) Social History Tobacco Use Types Packs/Day Years Used Date Smoking Tobacco: Never Assessed Comments Unknown Sex and Gender Information Value Date Recorded Sex Assigned at Not on file Legal Sex Female 3:53 AM REFRIGERATION MANAGER Gender Identity Not on file Sexual Orientation Not on file documented as of this encounter Plan of Treatment Upcoming Encounters Date Type Department Care Team (Late st Contact Info) Description 03/29/2025 9:00 AM REFRIGERATION MANAGER Office Visit [facility] [address] [facility] [address] [place] [phone] Juan Smith MD [address] [place], [place] [address] [place], [place] [id number] 09/20/2025 11:00 AM CDT Office Visit [facility] [address] [facility] [address] [place] [phone] Juan Smith MD [address] [place] [address] [address] [place], [place] [id number] documented as of this encounter Visit Diagnoses Diagnosis Chest pain, unspecified- Primary documented in this encounter Care Teams Setup Technician Relationship Specialty Start Date End Date Juan Smith MD [address] [place] [address] [address] [address] PCP - General 10/07/07 documented as of this encounter
--- OUTSIDE RECORDS SUMMARY | 2025-01-23 13:53 | XMS_ITS | Clinical Summary ---
Author Organization [facility] Address [address] [place] [address] Phone Care Team Providers Care Senior Payroll Manager Name Role Phone Juan Smith MD Primary Care Provider [phone] Allergies Active Allergy Reactions Criticality Noted Date Comments Diclofenac Other (See Comments) 04/05/2012 Stomach pain Latex Anxiety,Itching,Rash Low 11/22/2020 Naltrexone-Bupropion Dizziness Low 11/30/2016 Sulfa (Sulfonamide Antibiotics) 06/20/2004 Medications calcium-vitamin D3 (CALTRATE 600+D) 600 mg(1,500mg) -200 unit Tablet Take by mouth. Activ e [place] Daily Vitamin Take 1 tablet by mouth once daily 100 Each 3 12/25/2020 12:42 PM CDT 1 Active clotrimazole-be tamethasone (LOTRISONE) 1-0.05 % Cream APPLY TO THE AFFECTED AREA TWICE DAILY 45 Gram 3 2 Active tiZANidine (ZANAFLEX) 4 mg Tablet Take 1 Tablet (4 mg) by mouth 2 times daily as needed for Spasm. 60 Tablet 1 3 Active blood sugar diagnostic (OneTouch Verio test strips) Strip Test blood sugar daily 100 Strip 3 5 Active ALPRAZolam (XANAX) 0.25 mg tabletIndicatio ns:Generalized anxiety disorder Take 1 Tablet (0.25 mg) by mouth 2 times daily as needed for Anxiety. 30 Tablet 5 Active buPROPion HCL (WELLBUTRIN XL) 150 mg Extended Release 24 hour tablet TAKE 1 TABLET(150 MG) BY MOUTH DAILY CHEMIST 100 Tablet 3 5 Active omeprazole (PriLOSEC) 20 mg Capsule, Delayed Release(E.C.) Take 1 Capsule (20 mg) by mouth 2 times daily. 200 Capsule 3 5 Active atorvastatin (LIPITOR) 20 mg tablet Take 1 Tablet (20 mg) by mouth late in the day. 100 Tablet 3 5 Active tirzepatide (Mounjaro) 10 mg/0.5 mL Pen InjectorIndicat ions:Type 2 diabetes mellitus without complication, without long-term current use of insulin Inject 0.5 mL (10 mg) by subcutaneous injection every 7 days. 4 mL 4 5 Active Active Problems Problem Noted Date Diagnosed Date Primary osteoarthritis of one knee, right 2021 Type 2 diabetes mellitus wit hout complication, without long-term current use of insulin 01/24/2016 Essential hypertension 01/24/2016 Allergic rhinitis 12/02/2011 Sleep apnea 12/21/2006 Pure hypercholesterolemia 09/10/2005 Resolved Problems Problem Noted Date Diagnosed Date Resolved Date Sprain of medial collateral ligament of left knee 12/05/2017 07/24/2018 Hyperlipidemia 07/11/2015 01/24/2016 Severe obesity (BMI 35.0-39. 9) with comorbidity 07/11/2015 05/01/2021 HTN (hypertension) 12/11/2010 6 Type 2 diabetes mellitus without complication 12/12/19 11 01/24/2016 Other abnormal glucose 06/29/200612/11 Elevated blood pressure read ing without diagnosis of hypertension 06/29/2006 12/11/2010 Esophageal reflux 10/05/2005 10/17/2007 Contact dermatitis and other eczema, due to unspecified cause 10/05/2005 12/11/2010 Pain in thoracic spine 06/20/200410/16 Encounters Date Type Department Care Team Description 01/02/2025 External Device Data STL ABSTRACTION Provider, Abstract 12/29/2024 Abstract [facility] [address] [facility] [address] [address] Juan Smith MD 12/14/2024 Refill [facility] [address] [facility] [address] [phone] Juan Smith MD Type 2 diabetes mellitus without complication, without long-term current use of insulin ([facility]) 11/01/2024 External Device Data STL ABSTRACTION Provider, Abstract 10/31/2024 External Device Data STL ABSTRACTION Provider, Abstract from Last 3 Months Immunizations Immunization Administration Dates Next Due (ADACEL/BOOSTRIX)(10 YR UP) TDAP VACCINE, 0.5ML, IM 09/24/2020,08/01/2009 (PFIZER)(12 YR UP) COVID-19 VACCINE - EMERGENCY USE AUTHORIZATION, MRNA, [id number](PF) 30 MCG/0.3 ML IM SUSP 07/22/2020,06/28/2020 (PNEUMOVAX 23)(50 YRS UP) PN EUMOCOCCAL POLYSACCHARIDE (PPV23) 0.5 ML, IM 04/08/2017 INFLUENZA VACCINE QUADRIVALE NT 3 YR UP PF IM 01/29/2020 INFLUENZA VACCINE TRIVALENT MDCK, (6 MOS UP), 0.5ML (PF), IM 02/02/2024 Influenza Seasonal Unspecifi ed Formulation IM 02/03/2023,12/30/2020,01/29/2020,12/27,01/14/2013 Influenza, Unspecified Formulation 12/30,01/29/2020,12/27/2013,01/14 Family History Medical History Relation Name Comments Cancer Daughter 1 Kellsie Osteosarcoma ag e 15 Cancer Daughter 2 Kellsie Osteosarcoma ag e 15 Diabetes Father Michele Heart Disease Father Michele High Cholesterol Father Michele Hypertension Mother Gloria Osteoporosis Mother Gloria Diabetes Sister 1 Harper Diabetes Sister 2 Harper Colon Cancer Neg Hx Relation Name Status Comments Daughter 1 Kellsie Daughter 2 Kelgeneie Alive Father Michele Alive Mother Gloria Alive Sister 1 Harper Sister 2 Harper Alive Social History Tobacco Use Types Packs/Day Years Used Date Smoking Tobacco: Never Smokeless Tobacco: Never Tobacco Cessation:Counseling Given: Not Answered Alcohol Use Standard Drinks/Week Comments No 0 (1 standard drink = 0.6 oz pur e alcohol) Comments No Sex and Gender Information Value Date Recorded Sex Assigned at Not on file Legal Sex Female 3:53 AM BIOLOGY INTERN Gender Identity Not on file Sexual Orientation Not on file Last Filed Vital Signs Vital Sign Reading Time Taken Comments Blood Pressure 122/78 09/19/2024 1:16 PM CDT Pulse 94 09/19/2024 1:16 PM CDT Temperature 36.4 C (97.6 F) 09/19/2024 1:16 PM CDT Respiratory Rate 16 04/20/2024 9:21 AM BIOLOGY INTERN Oxygen Saturation 97% 09/19/2024 1:16 PM CDT Inhaled Oxygen Concentration - - Weight 70.3 kg (155 lb) 09/19/2024 1:16 PM CDT Height 162.6 cm (5' 4) 09/19/2024 1:16 PM CDT Body Mass Index 26.61 09/19/2024 1:16 PM CDT Plan of Treatment Upcoming Encounters Date Type Department Care Team (Late st Contact Info) Description 03/29/2025 9:00 AM BIOLOGY INTERN Office Visit [facility] [address] [place] [phone] Juan Smith MD [address] [place] [address] 09/20/2025 11:00 AM CDT Office Visit [facility] [address] [phone] Juan Smith MD [address] [place] [phone] Health Maintenance Due Date Last Done Comments HEPATITIS B VACCINES (1 of 3 - 19+ 3-dose series) 1985 HPV/Cotest (21-29) 1987 HPV/Cotest (30-65) 1996 FIT-DNA Q 3 years 2011 FIT/FOBT Q 1 year 2011 Flex Sig/CT Colonography Q 5 years 2011 ZOSTER VACCINE (1 of 2) 2016 CERVICAL CANCER SCREENING 11/18/2019 PAP SMEAR 11/18/2019 11/17/2016, 09/17, 07/25/2009 DIABETES ANNUAL RETINAL EXAM 06/23/202309/2022, 05/11/2018, 07/02/2011 BREAST CANCER SCREENING 07/02/2023 07/02/19 23, 07/01/2022, 05/27/2020, Additional history exists INFLUENZA VACCINE (#1) 2024 4, 02/03/2023, 12/30/2020, Additional history exists COVID-19 Vaccine (2024-2 6 season) 2024 07/22/2020, 06/28/2020 DIABETES HBA1C Q 6 MONTHS 03/18/20252024, 10/12/2023, 05/05/2023, Additional history exists DIABETES ANNUAL FOOT EXAM 04/20/20252024, 10/12/2023, 10/01/2022, Additional history exists DIABETES MICROALBUMIN ANNUAL SCREEN 09/15/2025 09/15/2024, 05/05/2023, 11/03/2022, Additional history exists DIABETES: A1C (Auto Order) 09/15/202509/15, 10/12/2023, 05/05/2023, Additional history exists LDL CHOLESTEROL ANNUAL 09/15/2025 , 05/05/2023, 11/03/2022, Additional history exists COLORECTAL SCREENING 06/22/2028 06/22/2018, 06/23/19 Colorectal Cancer Screening 06/22/2028 DTAP/TDAP/TD VACCINES (3 - T d or Tdap) 09/24/2030 09/24/2020, 08/01/2009 Procedures Procedure Name Priority Date/Time Associated Diagnosis Comments MICROALBUMIN/CREATIN INE RATIO, RANDOM UR Routine 09/15/2024 7:29 AM CDT Type 2 diabetes mellitus without complication, without long-term current use of insulin ([facility]) LIPID PANEL Routine 09/15/2024 7:27 AM CDT Type 2 diabetes mellitus without complication, without long-term current use of insulin ([facility]) HEMOGLOBIN A1C Routine 09/15/2024 7:27 AM CDT Type 2 diabetes mellitus without complication, without long-term current use of insulin ([facility]) MAMMO 3D RAMON SCREEN BILAT W OR WO CAD Routine 07/01/2022 HM DIABETES EYE EXAM Routine 06/22/2022 COLONOSCOPY REPORT 06/22/2018 7: 35 AM BIOLOGY INTERN from Last 3 Months or Most Recently Relevant to Health Maintenance Results * MICROALBUMIN/CREATININE RATIO, RANDOM UR (09/15/2024 7:29 AM CDT) CREATININE, URINE 132 20 - 275 mg/dL [facility] ALBUMIN, URINE 0.6 See Note: mg/dL [facility] Comment: Reference Range: Reference Range Not established ALB/CREAT RATIO, URINE 5 <30 mg/g creat [facility] Comment: The ADA defines abnormalities in albumin excretion as follows: Albuminuria Category Result (mg/g creatinine) Normal to Mildly increased <30 Moderately increased 30-299 Severely increased > OR = 300 The ADA recommends that at least two of three specimens collected within a 3-6 month period be abnormal before considering a patient to be within a diagnostic category. FASTING:YES FASTING: YES Test Performed at: [facility] [address] [address] Yumiko Goldberg MD Urine URINE SPECIMEN OBTAINED BY CLEAN CATCH PROCEDURE / Unknown 09/15/2024 7:29 AM CDT 09/15/2024 7:29 AM CDT us Juan Smith MD URINE ORDERABLES Final Resu lt [facility] [phone] [facility] [address] [address] * HEMOGLOBIN A1C (09/15/2024 7:27 AM CDT) HEMOGLOBIN A1C 5.2 <5.7 % of total Hgb [facility] Comment: For the purpose of screening for the presence of diabetes: <5.7% Consistent with the absence of diabetes 5.7-6.4% Consistent with increased risk for diabetes (prediabetes) > or =6.5% Consistent with diabetes This assay result is consistent with a decreased risk of diabetes. Currently, no consensus exists regarding use of hemoglobin A1c for diagnosis of diabetes in children. According to [place] Diabetes Association (ADA) guidelines, hemoglobin A1c <7.0% represents optimal control in non- diabetic patients. Different metrics may apply to specific patient populations. Standards of Medical Care in Diabetes(ADA). ESTIMATED AVERAGE GLUCOSE (MG/DL) 103 mg/dL Iunika Minor ESTIMATED AVERAGE GLUCOSE (MMOL/L) 5.7 mmol/L [facility] Comment: FASTING:YES FASTING: YES Test Performed at: [facility] [address] [address] [address] CorneliaBasim Goldberg Blood 09/15/2024 7:27 AM CDT 09/15/2024 7:27 AM CDT Juan Smith MD CHEMISTRY ORDERABLES Final Result [facility] [phone] [facility] [address] [address] [place] [address] * LIPID PANEL (09/15/2024 7:27 AM CDT) CHOLESTEROL 143 <200 mg/dL [facility] HDL 55 > OR = 50 mg/dL [facility] TRIGLYCERIDE 112 <150 mg/dL [facility] LDL CALCULATED 68 mg/dL (calc) [facility] Comment: Reference range: <100 Desirable range <100 mg/dL for primary prevention; <70 mg/dL for patients with CHD or diabetic patients with > or = 2 CHD risk factors. LDL-C is now calculated using the Cyndie calculation, which is a validated novel method providing better accuracy than the Friedewald equation in the estimation of LDL-C. Raz TENORIO et al. JORDAN. 2013;310(19): 1279-6279 (http://education.SiBEAM.eyeQ/faq/VNH362) CHOL/HDL RATIO 2.6 <5.0 (calc) [facility] NON-HDL CHOLESTEROL 88 <130 mg/dL (calc) [facility] Comment: For patients with diabetes plus 1 major ASCVD risk factor, treating to a non-HDL-C goal of <100 mg/dL (LDL-C of <70 mg/dL) is considered a therapeutic option. Test Performed at: [facility] [address] [place] [address] Yumiko Goldberg MD Blood 09/15/2024 7:27 AM CDT 09/15/2024 7:27 AM CDT Juan Smith MD CHEMISTRY ORDERABLES Final Result Performing Organization Address [facility] Co de Phone Number [facility] [phone] [facility] [address] [place] [address] * MAMMO SCRN BILAT 3D ARMON W OR WO CAD (07/01/2022) Anatomical Region Laterality Modality Breast Bilateral Mammography us Stl Other MAMMO ORDERABLES Final Result * HM DIABETES EYE EXAM (06/22/2022) Juan Smith MD HEALTH MAINTENANCE Final Re sult Performing Organization Address [facility] [address] [facility] Co de Phone Number EXTERNAL LAB * COLONOSCOPY REPORT (06/22/2018 7:35 AM BIOLOGY INTERN) Narrative Procedure Note Artemio Simeon MD - 06/22/2018 7:34 AM CST [facility] Endoscopy Patient Name: Juana Landrum Procedure Date: 06/22/2018 Date of : 1965 Admit Type: Outpatient Age: 53 Attending MD: Artemio Simeon MD Procedure: Colonoscopy Indications: Screening for colorectal malignant neoplasm Providers: Artemio Simeon MD Referring MD: Juan Smith MD Medicines: Monitored Anesthesia Care Procedure: Informed consent was obtained for the procedure, including moderate sedation after risks were discussed. Based on the pre-procedure assessment, including review of the patient's medical history, medications, allergies, and review of systems, the patient was deemed to be an appropriate candidate for sedation. A timeout was performed. Continuous ECG monitoring, pulse oximetry, blood pressure monitoring, and direct observation were performed. The colonoscope was introduced through the anus and advanced to the cecum, identified by appendiceal orifice and ileocecal valve. The colonoscopy was performed with ease. The patient tolerated the procedure well. The quality of the bowel preparation was excellent. Estimated Blood Loss: None. Findings: Small internal hemorrhoids were found during retroflexion. A few small-mouthed diverticula were found in the sigmoid colon. There was no inflammation or luminal narrowing. The examination was otherwise negative. No polyps were seen. The cecum and ileocecal valve were normal. Complications: No immediate complications. Impression: - Small internal hemorrhoids. - Mild diverticulosis in the sigmoid colon. - No polyps seen. Recommendation: - High fiber diet. - Repeat colonoscopy in 10 years for screening purposes. Artemio Simeon MD 06/22/2018 7:33:47 AM This report has been signed electronically. Number of Addenda: 0 Procedure Date: 06/22/2018 5:57:[id number] [place] [address] Artemio Simeon MD GI PROCEDURE ORDERABLES Final Re sult from Last 3 Months or Most Recently Relevant to Health Maintenance Insurance RX [employer] RX Member Subscriber Plan / Payer (Ef fective 2020-Present) Name:Juana Landrum Relation to Subscriber:Self Name:Juana Landrum Subscriber ID:Not on file Payer ID:Not on file Group ID:[id number] Type:RX Commercial Address: [place], [place] [employer] (INTERNAL) [facility] [address] Advance Directives For more information, please contact: [phone] * Full Code (Latest Code Status on File) Date Activated Date Inactivated Comments 11/11/2020 7:05 PM 11/12/2020 3:31 PM * Full Code Date Activated Date Inactivated Comments 11/11/2020 11:18 AM 11/11/2020 7:05 PM * Full Code Date Activated Date Inactivated Comments 08/09/2020 1:42 PM 08/09/2020 5:17 PM * Full Code Date Activated Date Inactivated Comments 06/22/2018 6:45 AM 06/22/2018 10:11 AM * Full Code Date Activated Date Inactivated Comments 10/07/2009 10:59 AM 10/08/2009 4:36 AM Care Teams Senior Payroll Manager Relationship Specialty Start Date End Date Juan Smith MD [address] [place] [address] PCP - General 10/07/07
--- OUTSIDE RECORDS SUMMARY | 2025-01-23 13:53 | XMS_ITS | Encounter Summary ---
Author Organization [facility] Address [address] [place] [address] Care Team Providers Care Section Leader And Machine Setter Name Role Phone Juan Smith MD Primary Care Provider Encounter Details Date Type Department Care Team (Late st Contact Info) Description 11/24/2001 Outpatient Historical [facility] Internal [facility] [address] [place] [address] Juan Smith MD [address] [place], [place] [address] [address] Social History Tobacco Use Types Packs/Day Years Used Date Smoking Tobacco: Never Assessed Comments Unknown Sex and Gender Information Value Date Recorded Sex Assigned at Not on file Legal Sex Female 3:53 AM ADJUNCT NURSING FACULTY Gender Identity Not on file Sexual Orientation Not on file documented as of this encounter Plan of Treatment Upcoming Encounters Date Type Department Care Team (Late st Contact Info) Description 03/29/2025 9:00 AM ADJUNCT NURSING FACULTY Office Visit [facility] [address] [place] [address] Juan Smith MD [address] [place], [place] [address] [place] [address] 09/20/2025 11:00 AM CDT Office Visit [facility] [address] [place] [address] Juan Smith MD [address] [address] documented as of this encounter Visit Diagnoses Not on filedocumented in this encounter Care Teams Section Leader And Machine Setter Relationship Specialty Start Date End Date Juan Smith MD [address] [place] [address] PCP - General 10/07/07 documented as of this encounter
--- OUTSIDE RECORDS SUMMARY | 2025-01-23 13:53 | XMS_ITS | Encounter Summary ---
Author Organization [facility] Address [address] [place] [address] Care Team Providers Care Wire Temperer Name Role Phone Juan Smith MD Primary Care Provider Encounter Details Date Type Department Care Team (Late st Contact Info) Description 11/29/2000 Outpatient Historical [facility] Internal [facility] [address] [place] [address] Juan Smith MD [address] [place], [place] [address] [place] [address] Social History Tobacco Use Types Packs/Day Years Used Date Smoking Tobacco: Never Assessed Comments Unknown Sex and Gender Information Value Date Recorded Sex Assigned at Not on file Legal Sex Female 3:53 AM UNDER SHERIFF Gender Identity Not on file Sexual Orientation Not on file documented as of this encounter Plan of Treatment Upcoming Encounters Date Type Department Care Team (Late st Contact Info) Description 03/29/2025 9:00 AM UNDER SHERIFF Office Visit [facility] Internal [facility] [address] [facility] [address] [facility] [address] [place] [address] Juan Smith MD [address] [place], [place] [address] [place] [address] 09/20/2025 11:00 AM CDT Office Visit [facility] [address] [facility] [address] [facility] [address] [place] [address] Juan Smith MD [address] [address] documented as of this encounter Visit Diagnoses Not on filedocumented in this encounter Care Teams Wire Temperer Relationship Specialty Start Date End Date Juan Smith MD [address] [place] [address] PCP - General 10/07/07 documented as of this encounter
--- OUTSIDE RECORDS SUMMARY | 2025-01-23 13:53 | XMS_ITS | Patient Health Record ---
Author Organization [facility] Address [address] [place], [place] [address] Care Team Providers Care Practical Nurse Name Role Phone Eric Lang Unavailable [phone] Migration, Provider Unavailable Unavailable Reason For Referral No Information Medications Medication SIG (Take, Route, Frequency, Duration) Notes Start Date End Date Status Atorvastatin Calcium 20 MG Tablet Oral 08/31/2022 Active atorvastatin *Reorder from [facility] for eRx and Interaction Alerts* 08/31/2022 Active buPROPion HCl ER (XL) 150 MG Tablet Extended Release 24 Hour Oral 08/31/2022 Active OneTouch Verio Strip In Vitro 08/31/2022 Active Social History Social History Additional Details Category Social Info Options Details Migrated Social History Migrated Social History Alcohol Intake: Occasional 08/31/2022,Tobacco Years: Never smoker 08/28/2022 Problems Problem Type SNOMED Code ICD Code Onset Dates Problem Status W/U Status Risk Notes Problem Screening for malignant neoplasm of cervix (628994928) Encounter for screening for malignant neoplasm of cervix (Z12.4) 3 Active confirmed Problem Gynecological examination normal (056516407993293) Encntr for light bulb assembler exam (general) (routine) w/o abn findings (Z01.419) 3 Active confirmed Encounters Encounter Location Date Provider Diagnosis [facility] [address] [place], [place] [phone] 07/15/2024 Prov ider Migration [facility] [address] [place], [place] [phone] 07/16/2024 Prov ider Migration Plan Of Treatment No Information Insurance Providers Payer Name Payer Address Payer Phone Subscriber Number Group Number Insured Name Patient Relationship to Insured Coverage Start Date Coverage End Date [facility] [address] [place] [address] [id number] LESLIE SHIELDS Spouse - patient is the spouse of the insured Medical (General) History Surgical History Surgery Date(Month/Year) Bariatric surgery Colonoscopy Colposcopy (757056788) Endometrial ablation Extraction of wisdom tooth (46763493) Hysteroscopy x3 Marsupialization of bartholin's gland (1 24793054) Procedure on gallbladder (217758650)
--- OUTSIDE RECORDS SUMMARY | 2025-01-23 13:53 | XMS_ITS | Encounter Summary ---
Author Organization [facility] Address [address] [place] [address] Care Team Providers Care Gauge And Weigh Machine Adjuster Name Role Phone Juan Smith MD Primary Care Provider Encounter Details Date Type Department Care Team (Late st Contact Info) Description 08/07/1998 Outpatient Historical [facility] Internal [facility] [address] [place] [address] Juan Smith MD [address] [place], [place] [address] [place] [address] Social History Tobacco Use Types Packs/Day Years Used Date Smoking Tobacco: Never Assessed Comments Unknown Sex and Gender Information Value Date Recorded Sex Assigned at Not on file Legal Sex Female 3:53 AM LEVELER HELPER Gender Identity Not on file Sexual Orientation Not on file documented as of this encounter Plan of Treatment Upcoming Encounters Date Type Department Care Team (Late st Contact Info) Description 03/29/2025 9:00 AM LEVELER HELPER Office Visit [facility] Internal [facility] [address] [place] [address] Juan Smith MD [address] [place] [address] [place] [address] 09/20/2025 11:00 AM CDT Office Visit [facility] Internal [facility] [address] [place] [address] Juan Smith MD [address] [address] documented as of this encounter Visit Diagnoses Not on filedocumented in this encounter Care Teams Gauge And Weigh Machine Adjuster Relationship Specialty Start Date End Date Juna Smith MD [address] [place] [address] PCP - General 10/07/07 documented as of this encounter
--- OUTSIDE RECORDS SUMMARY | 2025-01-23 13:53 | XMS_ITS | Encounter Summary ---
Author Organization [facility] Address [address] [facility] [place] Attn: [place] [address] Care Team Providers Care Cylinder Handler Name Role Phone Juan Smith MD Primary Care Provider Encounter Details Date Type Department Care Team (Late st Contact Info) Description 05/03/1991 Outpatient Historical Po Das MD NO ADDRESS ON FILE Social History Tobacco Use Types Packs/Day Years Used Date Smoking Tobacco: Never Assessed Comments Unknown Sex and Gender Information Value Date Recorded Sex Assigned at Not on file Legal Sex Female 3:53 AM REGISTRATION REP Gender Identity Not on file Sexual Orientation Not on file documented as of this encounter Plan of Treatment Upcoming Encounters Date Type Department Care Team (Late st Contact Info) Description 03/29/2025 9:00 AM REGISTRATION REP Office Visit [facility] Internal Medicine [facility] [address] [facility] [address] [place] [address] Juan Smith MD [address] [place], [place] [address] [address] 09/20/2025 11:00 AM CDT Office Visit [facility] Internal Medicine [facility] [address] [facility] [address], [place] [address] Juan Smith MD [address] [place], [place] [address] [address] documented as of this encounter Visit Diagnoses Not on filedocumented in this encounter Care Teams Cylinder Handler Relationship Specialty Start Date End Date Juan Smith MD [address] [place] [address] PCP - General 10/07/07 documented as of this encounter
--- OUTSIDE RECORDS SUMMARY | 2025-01-23 13:53 | XMS_ITS | Encounter Summary ---
Author Organization [facility] Address [address] [place] [address] Care Team Providers Care Veneer Sheet Repairer Name Role Phone Juan Smith MD Primary Care Provider [phone] Encounter Details Date Type Department Care Team (Late st Contact Info) Description 05/28/1998 Outpatient Historical [facility] Internal Medicine [facility] [address] [facility] [address] [place] [address] Juan Smith MD [address] [place], [place] [address] [address] Social History Tobacco Use Types Packs/Day Years Used Date Smoking Tobacco: Never Assessed Comments Unknown Sex and Gender Information Value Date Recorded Sex Assigned at Not on file Legal Sex Female 3:53 AM ELECTRICAL DESIGNER DRAFTER Gender Identity Not on file Sexual Orientation Not on file documented as of this encounter Plan of Treatment Upcoming Encounters Date Type Department Care Team (Late st Contact Info) Description 03/29/2025 9:00 AM ELECTRICAL DESIGNER DRAFTER Office Visit [facility] Internal Medicine [facility] [address] [facility] [address] [place] [address] Juan Smith MD [address] [place], [place] [address] [address] 09/20/2025 11:00 AM CDT Office Visit [facility] Internal Medicine [facility] [address] [facility] [address] [place] [address] Juan Smith MD [address] [address] documented as of this encounter Visit Diagnoses Not on filedocumented in this encounter Care Teams Veneer Sheet Repairer Relationship Specialty Start Date End Date Juan Smith MD [address] [place] [address] PCP - General 10/07/07 documented as of this encounter
--- OUTSIDE RECORDS SUMMARY | 2025-01-23 13:53 | XMS_ITS | Encounter Summary ---
Author Organization [facility] Address [address] [place] [address] Care Team Providers Care Informatics Manager Name Role Phone Juan Smith MD Primary Care Provider Encounter Details Date Type Department Care Team (Late st Contact Info) Description 08/10/2000 Outpatient Historical [facility] Internal Medicine [facility] [address] [facility] [address] [facility] [place] [address] Urban Jamison MD [address] [place] [address] Social History Tobacco Use Types Packs/Day Years Used Date Smoking Tobacco: Never Assessed Comments Unknown Sex and Gender Information Value Date Recorded Sex Assigned at Not on file Legal Sex Female 3:53 AM SOFTWARE ENGINEER ADVISOR Gender Identity Not on file Sexual Orientation Not on file documented as of this encounter Plan of Treatment Upcoming Encounters Date Type Department Care Team (Late st Contact Info) Description 03/29/2025 9:00 AM SOFTWARE ENGINEER ADVISOR Office Visit [facility] Internal Medicine [facility] [address] [facility] [address] [place] [address] Juan Smith MD [address] [facility] [address] [place] [address] 09/20/2025 11:00 AM CDT Office Visit [facility] Internal [facility] [address] [facility] [address] [place] [address] Juan Smith MD [address] [address] documented as of this encounter Visit Diagnoses Not on filedocumented in this encounter Care Teams Informatics Manager Relationship Specialty Start Date End Date Juan Smith MD [address] [address] PCP - General 10/07/07 documented as of this encounter
--- OUTSIDE RECORDS SUMMARY | 2025-01-23 13:53 | XMS_ITS | Encounter Summary ---
Author Organization [facility] Address [address] [place] [address] Care Team Providers Care Back Strip Machine Operator Name Role Phone Juan Smith MD Primary Care Provider Encounter Details Date Type Department Care Team (Late st Contact Info) Description 08/26/1999 Outpatient Historical [facility] Internal Medicine [facility] [address] [place] [address] Puma Shankar MD [address] [place] [address] Social History Tobacco Use Types Packs/Day Years Used Date Smoking Tobacco: Never Assessed Comments Unknown Sex and Gender Information Value Date Recorded Sex Assigned at Not on file Legal Sex Female 3:53 AM CARPET INSPECTOR FINISHED Gender Identity Not on file Sexual Orientation Not on file documented as of this encounter Plan of Treatment Upcoming Encounters Date Type Department Care Team (Late st Contact Info) Description 03/29/2025 9:00 AM CARPET INSPECTOR FINISHED Office Visit [facility] Internal Medicine [facility] [address] [facility] [address] [place] [address] Juan Smith MD [address] [facility] [address] [place] [address] 09/20/2025 11:00 AM CDT Office Visit [facility] Internal [facility] [address] [facility] [address] [place] [address] Juan Smith MD [address] [facility] [address] [address] documented as of this encounter Visit Diagnoses Not on filedocumented in this encounter Care Teams Back Strip Machine Operator Relationship Specialty Start Date End Date Juan Smith MD [address] [facility] [address] [place] [address] PCP - General 10/07/07 documented as of this encounter
--- OUTSIDE RECORDS SUMMARY | 2025-01-23 13:53 | XMS_ITS | Patient Health Record ---
Author Organization [facility] Address [address] [place], [place] [address] Care Team Providers Care Hardware Engineering Manager Name Role Phone Codey Raines DO Unavailable [phone] Allergies Allergen (clinical drug ingredient) Drug/Non Drug Allergy documented on EMR Reaction Allergy Type Onset Date Status Latex Latex rash, itching Allergy Active Substance with sulfonamide structure and antibacterial mechanism of action (substance) Sulfa Antibiotics Unknown Drug Allergy 12/09/2022 Active Reason For Referral No Information Medications Medication SIG (Take, Route, Frequency, Duration) Notes Start Date End Date Status Mounjaro 10 MG/0.5ML as directed Subcutaneous 12/09/2022 Unknown ATORVASTATIN *Reorder from Crypton[employer]-Q-ity for eRx and Interaction Alerts* 12/09/2022 Unknown Multivitamin - 1 tablet Orally Once a day Unknown Hyoscyamine Sulfate 0.125 MG TAKE 1 TABLET BY MOUTH EVERY 8 HOURS NEEDED; Duration: 90 Active buPROPion HCl ER (XL) 150 MG 1 tablet in the morning Orally Once a day Unknown Calcium Unknown Omeprazole 20 MG Oral 12/09/2022 Un known Problems Problem Type SNOMED Code ICD Code Onset Dates Problem Status W/U Status Risk Notes Problem Vitamin deficiency (36080563) Vitamin deficiency, unspecified (E56.9) Active confirmed Problem Overweight (138275314) Overweight (E66.3) Active confirmed Problem 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, 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) Active confirmed Problem History of gastrectomy (076670828) 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) Active confirmed Vital Signs Heart Rate 100 /min 01/10/2025 Temperature 97.8 degrees Fahrenheit 01/10/2025 Blood pressure diastolic 103 mm Hg 01/10/2025 Oximetry 98 % 01/10/2025 Height-cm 165.1 cm 01/10/2025 Weight-kg 69.4 kg 01/10/2025 Height 65.00 in 01/10/2025 Blood pressure systolic 166 mm Hg 01/10/2025 Weight 153 lbs 01/10/2025 BMI 25.46 kg/m2 01/10/2025 Encounters Encounter Location Date Provider Diagnosis [facility] [address] [facility] [address] [place], [place] [id number] 01/10/2025 Codey Raines Vitamin deficiency, unspecified E56.9 ; Postsurgical malabsorption, not elsewhere classified K91.2 ; Other specified personal risk factors, not elsewhere classified Z91.89 ; S/P bariatric surgery Z98.84 and Overweight E66.3 [facility] [address] [facility] [address] [place], [place] [id number] 02/03/2024 Codey Raines Assessments Encounter Date Diagnosis (ICD Code) Assessment Notes Treatment Notes Treatment Clinical Notes Section Notes 01/10/2025 Vitamin deficiency, unspecified (ICD-10 - E56.9) 01/10/2025 Postsurgical malabsorption, not elsewhere classified (ICD-10 - K91.2) 01/10/2025 Other specified personal risk factors, not elsewhere classified (ICD-10 - Z91.89) 01/10/2025 S/P bariatric surgery (ICD-10 - Z98.84) 01/10/2025 Overweight (ICD-10 - E66.3) Plan Of Treatment Pending Test Test Name Order Date LIPID PANEL, STANDARD (7600) 01/10/2025 IRON, TIBC AND FERRITIN PANEL (5616) COMPREHENSIVE METABOLIC PANEL (71704) CBC (H/H, RBC, INDICES, WBC, PLT) (1759) 01/10/2025 HEMOGLOBIN A1c (496) 01/10/2025 VITAMIN B12/FOLATE, SERUM PANEL (7065) 0 01/10/2025 TSH (899) 01/10/2025 VITAMIN D,25-OH,TOTAL,IA (50667) 025 ZINC (945) 01/10/2025 VITAMIN B1 (THIAMINE), SERUM/PLASMA, LC/ MS/MS (75032) 01/10/2025 Next Appt Details Provider Name:Letitia Haddad Brandon arora, 01/29/2025 08:30:00 AM, [address], [place], [place], [id number], Provider Name:Codey morales, 08/08/2025 09:15:00 AM, [address], [place], [place], [id number], Insurance Providers Payer Name Payer Address Payer Phone Subscriber Number Group Number Insured Name Patient Relationship to Insured Coverage Start Date Coverage End Date [facility] [address] [place] [address] [id number] LESLIE GRECO Spouse - patient is the spouse of the insured Medical (General) History Medical History History ICD Code anxiety Arthritis gastroesophageal reflux disease obstructive sleep apnea post operative nausea and vomiting skin cancer, basal cell hyperlipidemia Surgical History Surgery Date(Month/Year) Lap Sleeve Gastrectomy, Dr. Raines 021 Cholecystectomy 2010
--- OUTSIDE RECORDS SUMMARY | 2025-01-23 13:53 | XMS_ITS | Encounter Summary ---
Author Organization [facility] Address [address] [place] [address] Care Team Providers Care Case Packer Name Role Phone Juan Smith MD Primary Care Provider Encounter Details Date Type Department Care Team (Late st Contact Info) Description 05/01/1999 Outpatient Historical [facility] Internal Medicine [facility] [address] [facility] [address] [place] [address] Juan Smith MD [address] [place], [place] [address] [place] [address] Social History Tobacco Use Types Packs/Day Years Used Date Smoking Tobacco: Never Assessed Comments Unknown Sex and Gender Information Value Date Recorded Sex Assigned at Not on file Legal Sex Female 3:53 AM CONTRACTOR BROOMCORN THRESHING Gender Identity Not on file Sexual Orientation Not on file documented as of this encounter Plan of Treatment Upcoming Encounters Date Type Department Care Team (Late st Contact Info) Description 03/29/2025 9:00 AM CONTRACTOR BROOMCORN THRESHING Office Visit [facility] Internal Medicine [facility] [address] [facility] [address] [place] [address] Juan Smith MD [address] [place], [place] [address] [place] [address] 09/20/2025 11:00 AM CDT Office Visit [facility] Internal Medicine [facility] [address] [facility] [address] [place] [address] Juan Smith MD [address] [address] documented as of this encounter Visit Diagnoses Not on filedocumented in this encounter Care Teams Case Packer Relationship Specialty Start Date End Date Juan Smith MD [address] [place] [address] PCP - General 10/07/07 documented as of this encounter
--- OUTSIDE RECORDS SUMMARY | 2025-01-23 13:53 | XMS_ITS | Encounter Summary ---
Author Organization [facility] Address [address] [place] [address] Care Team Providers Care Tongue And Groove Machine Feeder Name Role Phone Juan Smith MD Primary Care Provider Encounter Details Date Type Department Care Team (Late st Contact Info) Description 11/04/1999 Outpatient Historical [facility] Internal Medicine [facility] [address] [facility] [address] [place] [address] Juan Smith MD [address] [place], [place] [address] [place] [address] Social History Tobacco Use Types Packs/Day Years Used Date Smoking Tobacco: Never Assessed Comments Unknown Sex and Gender Information Value Date Recorded Sex Assigned at Not on file Legal Sex Female 3:53 AM CLIENT SUPPORT COORDINATOR Gender Identity Not on file Sexual Orientation Not on file documented as of this encounter Plan of Treatment Upcoming Encounters Date Type Department Care Team (Late st Contact Info) Description 03/29/2025 9:00 AM CLIENT SUPPORT COORDINATOR Office Visit [facility] Internal Medicine [facility] [address] [facility] [address] [place] [address] Juan Smith MD [address] [place], [place] [address] [place] [address] 09/20/2025 11:00 AM CDT Office Visit [facility] Internal Medicine [facility] [address] [facility] [address] [place] [address] Juan Smith MD [address] [address] documented as of this encounter Visit Diagnoses Not on filedocumented in this encounter Care Teams Tongue And Groove Machine Feeder Relationship Specialty Start Date End Date Juan Smith MD [address] [place] [address] PCP - General 10/07/07 documented as of this encounter
--- OUTSIDE RECORDS SUMMARY | 2025-01-23 13:53 | XMS_ITS | Encounter Summary ---
Author Organization [facility] Address [address] [facility] Attn: [place] [address] Care Team Providers Care Profiling Machine Set Up Operator Name Role Phone Juan Smith MD Primary Care Provider Encounter Details Date Type Department Care Team (Late st Contact Info) Description 10/19/1991 Outpatient Historical Po Das MD NO ADDRESS ON FILE Social History Tobacco Use Types Packs/Day Years Used Date Smoking Tobacco: Never Assessed Comments Unknown Sex and Gender Information Value Date Recorded Sex Assigned at Not on file Legal Sex Female 3:53 AM PROSTHETIC MAKEUP DESIGNER Gender Identity Not on file Sexual Orientation Not on file documented as of this encounter Plan of Treatment Upcoming Encounters Date Type Department Care Team (Late st Contact Info) Description 03/29/2025 9:00 AM PROSTHETIC MAKEUP DESIGNER Office Visit [facility] Internal Medicine [facility] [address] [facility] [address] [place] [address] Juan Smith MD [address] [place], [place] [address] [place] [address] 09/20/2025 11:00 AM CDT Office Visit [facility] Internal Medicine [facility] [address] [facility] [address], [place] [address] Juan Smith MD [address] [place], [place] [address] [place] [address] documented as of this encounter Visit Diagnoses Not on filedocumented in this encounter Care Teams Profiling Machine Set Up Operator Relationship Specialty Start Date End Date Juan Smith MD [address] [place] [address] PCP - General 10/07/07 documented as of this encounter
--- OUTSIDE RECORDS SUMMARY | 2025-01-23 13:53 | XMS_ITS | Encounter Summary ---
Author Organization [facility] Address [address] [place] [address] Care Team Providers Care Product Evangelist Name Role Phone Juan Smith MD Primary Care Provider Reason for Visit * Reason Comments Labs Only Encounter Details Date Type Department Care Team (Late st Contact Info) Description 05/01/2024 Telephone [facility] Internal [facility] [address] [facility] [address] [place] [address] Juan Smith MD [address] [facility] [address] [place], [place] [id number] Labs Only Social History Tobacco Use Types Packs/Day Years Used Date Smoking Tobacco: Never Smokeless Tobacco: Never Alcohol Use Standard Drinks/Week Comments No 0 (1 standard drink = 0.6 oz pur e alcohol) Comments No Sex and Gender Information Value Date Recorded Sex Assigned at Not on file Legal Sex Female 3:53 AM SALES ENGAGEMENT EXECUTIVE Gender Identity Not on file Sexual Orientation Not on file documented as of this encounter Miscellaneous Notes * Telephone Encounter - Love Starr - 05/01/2024 3:24 PM CST Spoke with patient, she requested for [facility] to fax results to Dr. Smith today sometime after 11 am. Look in right fax, nothing received at this time. Patient will try to screenshot results from her [facility] ankur and upload images to [employer]. After results received, MD will need to review and we should let patient know which tests ordered 09/[address] Smith she should have done. S ENGAGEMENT EXECUTIVE * Telephone Encounter - Brigid Rojo RN - 05/01/2024 3:13 PM CST Images from the original note were not included. Lab orders placed on 10/11. No media reports found. Patient reports completing labs. Will check fax. S ENGAGEMENT EXECUTIVE * Telephone Encounter - Mohini Torres - 05/01/2024 12:22 PM CST Copied from [facility] #[id number]. Topic: Patient or Caregiver Communication Request >> May 01, 2024 12:18 PM Mohini Kulkarni wrote: Patient or Caregiver requesting that a message be sent to Care Team Caller: Juana Landrum Patient/Caregiver Callback Number: Telephone Information: Call Notes: The patient is calling because she had labs done a few months back that another provider requested. She says that she requested that they be sent over via fax and is wanting to confirm that they were received. She was also informed that there are labs in the system from Dr. Smith and she says that there may be labs that she already got done and wants to know which other ones are needed after Dr. Smith reviews the ones she had done from the other providers request. Please call back and advise. S ENGAGEMENT EXECUTIVE documented in this encounter Plan of Treatment Upcoming Encounters Date Type Department Care Team (Late st Contact Info) Description 03/29/2025 9:00 AM SALES ENGAGEMENT EXECUTIVE Office Visit [facility] Internal Medicine [facility] [address] [facility] [address] [place] [address] Juan Smith MD [address] [facility] [address] [address] 09/20/2025 11:00 AM CDT Office Visit [facility] Internal Medicine [facility] [address] [facility] [address] [place] [address] Juan Smith MD [address] [facility] [address] [place] [address] documented as of this encounter Visit Diagnoses Not on filedocumented in this encounter Care Teams Product Evangelist Relationship Specialty Start Date End Date Juan Smith MD [address] [place] [address] [place] [address] PCP - General 10/07/07 documented as of this encounter
--- OUTSIDE RECORDS SUMMARY | 2025-01-23 13:54 | XMS_ITS | Clinical Summary ---
Author Organization [facility] Address [address] [place] [address] Care Team Providers Care Motor Vehicle Light Assembler Name Role Phone Juan Smith MD Primary Care Provider Source Comments [facility],non-owned Affiliates and Associated Physician Practices is amultiple site organization consisting of ambulatory clinics and hospital sitesin [place], [place], [place] and [place]. This disclosure is being madepursuant to the Care Everywhere program and may not contain all information available regarding this patient. Last updated 18.[facility] Allergies Active Allergy Reactions Criticality Noted Date Comments Diclofenac Epolamine Unknown 04/05/2012 Stomach pain Naltrexone-Bupropion Hcl Er Dizziness 12/01/19 17 Sulfa Drugs Unknown 06/20/2004 Medications * Be aware that medications may not be up to date on this document. Alwaysverify current medications with the patient. metFORMIN ER 24hr (GLUCOPHAGE XR) 500 MG tablet Takes 2 tab in am and 2 tabs in pm 0 Active liraglutide (VICTOZA) 18 MG/3ML pen INJECT 1.8 MG BY SUBCUTANEOUS INJECTION DAILY PLEASE SUPPLY 90 DAY SUPPLY. 0 Active metoprolol succinate XL 24hr (TOPROL XL) 100 MG tablet TAKE 1 TABLET(100 MG) BY MOUTH DAILY 0 Active losartan (COZAAR) 100 MG tablet Take 100 mg by mouth once daily 9 Active omeprazole (PRILOSEC) 20 MG capsule TAKE 1 CAPSULE(20 MG) BY MOUTH DAILY 9 Active hydroCHLOROthia zide (MICROZIDE) 12.5 MG capsule TAKE 1 CAPSULE(12.5 MG) BY MOUTH DAILY FOR HIGH BLOOD PRESSURE 0 Active atorvastatin (LIPITOR) 20 MG tablet TAKE 1 TABLET BY MOUTH DAILY (TAKE LATE IN THE DAY) 0 Active buPROPion XL 24hr (WELLBUTRIN-XL) 150 MG tablet Take 150 mg by mouth 9 Active ALPRAZolam (XANAX) 0.25 MG tablet TAKE 1 TABLET BY MOUTH TWICE DAILY NEEDED FOR ANXIETY 0 Active Active Problems No known active problems Family History Medical History Relation Name Comments Cancer - Skin, Non Melanoma Father Cancer - Skin, Non Melanoma Mother Cancer - Skin, Non Melanoma Sister Relation Name Status Comments Father Mother Sister Social History Tobacco Use Types Packs/Day Years Used Date Smoking Tobacco: Never Smokeless Tobacco: Never Alcohol Use Standard Drinks/Week Comments Never 0 (1 standard drink = 0.6 oz pur e alcohol) AUDIT-C Answer Date Recorded Q1: How often do you have a drink containing alc ohol? Never 09/26/2019 Average Number of Drinks Not on file 020 Frequency of Binge Drinking Not on file 12/2019 Comments Unknown Sex and Gender Information Value Date Recorded Sex Assigned at Not on file Legal Sex Female 12:16 PM CDT Gender Identity Not on file Sexual Orientation Not on file Last Filed Vital Signs Vital Sign Reading Time Taken Comments Blood Pressure 152/100 11/01/2019 9:55 AM CDT Pulse 75 11/01/2019 9:55 AM CDT Temperature - - Respiratory Rate - - Oxygen Saturation - - Inhaled Oxygen Concentration - - Weight 103.9 kg (229 lb) 11/01/2019 7:26 AM CDT Height 165.1 cm (5' 5) 11/01/2019 7:26 AM CDT Body Mass Index 38.11 11/01/2019 7:26 AM CDT Plan of Treatment Health Maintenance Due Date Last Done Comments COLOGUARD (AGES 45-75) - COL ON CA SCREENING 1966 COLON MONITORING 1966 COLONOSCOPY - COLON CA SCREENING 1966 CT COLONOGRAPHY - COLON CA SCREENING 1966 Colorectal Cancer Screening 1966 FIT - COLON CA SCREENING 1966 FLEX SIG - COLON CA SCREENING 1966 MAMMOGRAM 1966 HIV SCREENING 1981 HEPATITIS C SCREENING 06/08/1984 DTAP/TDAP/TD VACCINES (1 - Tdap) 1985 HEPATITIS B VACCINE (1 of 3 - 19+ 3-dose series) 1985 PNEUMOCOCCAL VACCINE 50+ (1 of 1 - PCV) 2016 ZOSTER VACCINE (1 of 2) 2016 SCREENING FOR DIABETES 11/01/2019 DEPRESSION SCREENING 04/19/2024 COVID-19 VACCINE (1 - 2023-2 5 season) 2024 INFLUENZA VACCINE (#1) 2024 4, 01/14/2013 HIB VACCINE Aged Out No longer eligi ble based on patient's age to complete this topic HPV VACCINE Aged Out No longer eligi ble based on patient's age to complete this topic MENINGOCOCCAL (Group B) VACCINE SHARED DECISION-MAKING Aged Out No longer eligible based on patient's age to complete this topic MENINGOCOCCAL GROUPS A/C/Y/W VACCINE Aged Out No longer eligible b ased on patient's age to complete this topic Insurance [facility] Care Teams Motor Vehicle Light Assembler Relationship Specialty Start Date End Date Juan Smith MD [address] [place] [id number] PCP - General 09/26/19
--- OUTSIDE RECORDS SUMMARY | 2025-01-23 13:54 | XMS_ITS | Encounter Summary ---
Author Organization [facility] Address [address] [place] [address] Care Team Providers Care Animal Technician Name Role Phone Juan Smith MD Primary Care Provider Encounter Details Date Type Department Care Team (Late st Contact Info) Description 06/29/2006 Orders Only [facility] Internal Medicine Medical [place] [facility] [address] [place] [address] [address] [place] [address] Juan Smith MD [address] 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 MEDICATIONS: RN/MA reviewed medications. CHIEF COMPLAINT Here for follow up evaluation.WORRIED ABOUT BP. HISTORY: HISTORY: 272.4-HYPERLIPIDEMIA The patient`s weight is the same. The patient is compliant with the low saturated fat diet. The patient does not exercise. The patient is tolerating the medications. 790.29-OTHER ABNORMAL GLUCOSE September 2005, 108 fasting. CURRENT MEDICATION LIST: ELOCON EXTERNAL CREAME 0.1 %, bid 10-14 days for eczema RANITIDINE HCL ORAL TABLET 150 MG, 1 bid prn FLUOXETINE HCL ORAL CAPSULE CONVENTIONAL 10 MG, 1 Every Day LOVASTATIN ORAL TABLET 20 MG, 1 Every Day ROS: GENERAL: Normal activity and energy level, no change in appetite. No major weight gain or loss. No malaise, chills, fever, diaphoresis.. ENT: No hearing loss, epistaxis, hoarseness or dysphagia. No sinus congestion.. ENDOCRINE: No heat or cold intolerance, no excessive thirst.. CARDIAC: No chest pain, palpitations, orthopnea, dyspnea on exertion, or paroxysmal nocturnal dyspnea.. RESPIRATORY: No dyspnea, cough, hemoptysis or wheezing.. : No frequency, urgency, hematuria or dysuria.. GI: No abdominal pain, nausea, vomiting, diarrhea, constipation, melena, or hematochezia.. PHYSICAL EXAMINATION: CONSTITUTIONAL: GENERAL APPEARANCE: Healthy appearing patient in no distress. NECK/THYROID: Trachea midline. No thyroid enlargement, tenderness, or mass. No supraclavicular or cervical adenopathy. RESPIRATORY: Clear to auscultation and percussion. Normal respiratory effort. CARDIOVASCULAR: CARDIAC: Regular rhythm. No murmurs, rubs, or gallops. ARTERIAL: No aortic bruits. EDEMA/VARICOSITIES OF EXTREMITIES: No edema or varicosities. LYMPHATICS: No supraclavicular lymphadenopathy noted, no lymphadenopathy in the neck. GASTROINTESTINAL: ABDOMEN: Soft, non-tender, without masses. Bowel sounds active. LIVER/SPLEEN/KIDNEY: No hepatosplenomegaly, tenderness or nodularity. Kidneys not palpable. ASSESSMENT/PLAN: 272.4-HYPERLIPIDEMIA ASSESSMENT: Will not change medication, continue to monitor for complications. A low cholesterol diet was encouraged. Weight loss was encouraged. Regular aerobic exercise was encouraged. Clinical guidelines reviewed. LAB ORDERS: Order number: [id number] Test Ordered: LIPID PANEL 7600 790.29-OTHER ABNORMAL GLUCOSE ASSESSMENT: discussed diabetes LAB ORDERS: Order number: [id number] Test Ordered: BASIC METABOLIC PANEL W/ GLOMERULAR FILTRATION RATE, ESTIMATED (EGFR) [id number] 796.2-BLOOD PRESSURE ELEVATED W/O DX OF HTN ASSESSMENT: No medication currently used for blood pressure control. Will continue to follow for the need to intervene therapeutically. PREVENTIVE COUNSELING The patient was counseled regarding diet, regular sustained exercise for at least 30 minutes 3-4 times per week, screening procedures and recommended schedules for mammography, GI hemoccult testing, colonoscopy,cholesterol, thyroid and diabetes screening. RETURN VISIT : Patient instructed to return in 4 months. Electronically Signed by: Juan Smith MD on Thursday, June 29, 2006 documented in this encounter Plan of Treatment Upcoming Encounters Date Type Department Care Team (Late st Contact Info) Description 03/29/2025 9:00 AM HEAVY EQUIPMENT FIELD MECHANIC Office Visit [facility] Internal Medicine [facility] [address] [phone] Juan Smith MD [address] [place] [address] 09/20/2025 11:00 AM CDT Office Visit [facility] [address] [phone] Juan Smith MD [address] [place] [address] documented as of this encounter Visit Diagnoses Not on filedocumented in this encounter Care Teams Animal Technician Relationship Specialty Start Date End Date Juan Smith MD [address] [place] [address] PCP - General 10/07/07 documented as of this encounter
--- OUTSIDE RECORDS SUMMARY | 2025-01-23 13:54 | XMS_ITS | Encounter Summary ---
Author Organization [facility] Address [address] [place] [address] Care Team Providers Care Pearl Cutter Name Role Phone Juan Smith MD Primary Care Provider Encounter Details Date Type Department Care Team (Late st Contact Info) Description 06/30/2007 Orders Only [facility] Internal Medicine [facility] [address] [facility] [address] [place] [address] Juan Smith MD [address] [place], [place] [address] [place] [address] Social History Tobacco Use Types Packs/Day Years Used Date Smoking Tobacco: Never Assessed Comments Unknown Sex and Gender Information Value Date Recorded Sex Assigned at Not on file Legal Sex Female 3:53 AM CURTAIN MENDER Gender Identity Not on file Sexual Orientation Not on file documented as of this encounter Plan of Treatment Upcoming Encounters Date Type Department Care Team (Late st Contact Info) Description 03/29/2025 9:00 AM CURTAIN MENDER Office Visit [facility] Internal Medicine [facility] [address] [facility] [address] [place] [address] Juan Smith MD [address] [place] [address] [address] [place] [address] 09/20/2025 11:00 AM CDT Office Visit [facility] Internal Medicine [facility] [address] [facility] [address] [place] [address] Juan Smith MD [address] [address] documented as of this encounter Visit Diagnoses Not on filedocumented in this encounter Care Teams Pearl Cutter Relationship Specialty Start Date End Date Juan Smith MD [address] [place] [address] PCP - General 10/07/07 documented as of this encounter
--- OUTSIDE RECORDS SUMMARY | 2025-01-23 13:54 | XMS_ITS | Encounter Summary ---
Author Organization [facility] Address [address] [place] [address] Care Team Providers Care Crepe Laminator Operator Name Role Phone Juan Smith MD Primary Care Provider Encounter Details Date Type Department Care Team (Late st Contact Info) Description 10/05/2005 Outpatient Historical [facility] Internal Medicine Medical [place] [facility] [address] [place] [address] Juan Smith MD [address] [place] [address] Social History Tobacco Use Types Packs/Day Years Used Date Smoking Tobacco: Never Assessed Comments Unknown Sex and Gender Information Value Date Recorded Sex Assigned at Not on file Legal Sex Female 3:53 AM PREFITTER DOORS Gender Identity Not on file Sexual Orientation Not on file documented as of this encounter Last Filed Vital Signs Vital Sign Reading Time Taken Comments Blood Pressure 134/84 10/05/2005 11:00 AM CDT Pulse 74 10/05/2005 11:00 AM CDT Temperature 36.1 C (97 F) 10/05/2005 11:00 AM CDT Respiratory Rate - - Oxygen Saturation - - Inhaled Oxygen Concentration - - Weight 106.1 kg (234 lb) 10/05/2005 11:00 AM CDT Height - - Body Mass Index - - documented in this encounter Plan of Treatment Upcoming Encounters Date Type Department Care Team (Late st Contact Info) Description 03/29/2025 9:00 AM PREFITTER DOORS Office Visit [facility] Internal Medicine [facility] [address] [facility] [place] [address] Juan Smith MD [address] [facility] [address] [address] 09/20/2025 11:00 AM CDT Office Visit [facility] Internal Medicine Medical [place] [facility] [address] [facility] [address] [place] [address] Juan Smith MD [address] [facility] [address] [place] [address] documented as of this encounter Visit Diagnoses Not on filedocumented in this encounter Care Teams Crepe Laminator Operator Relationship Specialty Start Date End Date Juan Smith MD [address] [place] [address] [address] [address] PCP - General 10/07/07 documented as of this encounter
--- OUTSIDE RECORDS SUMMARY | 2025-01-23 13:54 | XMS_ITS | Encounter Summary ---
Author Organization [facility] Address [address] [place] [address] Care Team Providers Care Forepart Reducer Name Role Phone Juan Smith MD Primary Care Provider Encounter Details Date Type Department Care Team (Late st Contact Info) Description 06/29/2006 Outpatient Historical [facility] Internal Medicine [address] [address] Juan Smith MD [address] [place] [address] [address] [place], [place] [id number] Social History Tobacco Use Types Packs/Day Years Used Date Smoking Tobacco: Never Assessed Comments Unknown Sex and Gender Information Value Date Recorded Sex Assigned at Not on file Legal Sex Female 3:53 AM ETCHER PRINTED CIRCUIT BOARDS Gender Identity Not on file Sexual Orientation Not on file documented as of this encounter Last Filed Vital Signs Vital Sign Reading Time Taken Comments Blood Pressure 120/90 06/29/2006 1:15 PM CDT Pulse 74 06/29/2006 1:15 PM CDT Temperature - - Respiratory Rate 12 06/29/2006 1:15 PM CDT Oxygen Saturation - - Inhaled Oxygen Concentration - - Weight 105.2 kg (232 lb) 06/29/2006 1:15 PM CDT Height 165.1 cm (5' 5) 06/29/2006 1:15 PM CDT Body Mass Index 38.61 06/29/2006 1:15 PM CDT documented in this encounter Plan of Treatment Upcoming Encounters Date Type Department Care Team (Late st Contact Info) Description 03/29/2025 9:00 AM ETCHER PRINTED CIRCUIT BOARDS Office Visit [facility] Internal Medicine [facility] [address] [facility] [address] [place] [address] Juan Smith MD [address] [facility] [address] [place] [address] 09/20/2025 11:00 AM CDT Office Visit [facility] Internal Medicine [facility] [address] [facility] [address] [place] [address] Juan Smith MD [address] [place] [address] [address] documented as of this encounter Visit Diagnoses Not on filedocumented in this encounter Care Teams Forepart Reducer Relationship Specialty Start Date End Date Juan Smith MD [address] [place] [address] [address] [place] [address] PCP - General 10/07/07 documented as of this encounter
--- OUTSIDE RECORDS SUMMARY | 2025-01-23 13:54 | XMS_ITS | Encounter Summary ---
Author Organization [facility] Address [address] [place] [address] Care Team Providers Care Respiratory Technician Name Role Phone Juan Smith MD Primary Care Provider Encounter Details Date Type Department Care Team (Late st Contact Info) Description 01/01/2004 Outpatient Historical [facility] Internal Medicine [facility] [address] [facility] [address] [place] [address] Juan Smith MD [address] [place], [place] [address] [place] [address] Social History Tobacco Use Types Packs/Day Years Used Date Smoking Tobacco: Never Assessed Comments Unknown Sex and Gender Information Value Date Recorded Sex Assigned at Not on file Legal Sex Female 3:53 AM MANAGING PARTNER D[employer] [place] Gender Identity Not on file Sexual Orientation Not on file documented as of this encounter Plan of Treatment Upcoming Encounters Date Type Department Care Team (Late st Contact Info) Description 03/29/2025 9:00 AM MANAGING PARTNER D[employer]ITAL [employer] MARKET[employer] [place] Office Visit [facility] Internal Medicine [facility] [address] [facility] [address] [place] [address] Juan Smith MD [address] [place], [place] [address] [place] [address] 09/20/2025 11:00 AM CDT Office Visit [facility] Internal Medicine [facility] [address] [facility] [address] [place] [address] Juan Smith MD [address] [address] documented as of this encounter Visit Diagnoses Not on filedocumented in this encounter Care Teams Respiratory Technician Relationship Specialty Start Date End Date Juan Smith MD [address] [place] [address] PCP - General 10/07/07 documented as of this encounter
--- OUTSIDE RECORDS SUMMARY | 2025-01-23 13:54 | XMS_ITS | Encounter Summary ---
Author Organization [facility] Address [address] [place] [address] Care Team Providers Care Human Resource Internship Name Role Phone Juan Smith MD Primary Care Provider Encounter Details Date Type Department Care Team (Late st Contact Info) Description 07/20/2003 Outpatient [facility] [address] [place], [place] [phone] Dharmesh Chris MD Social History Tobacco Use Types Packs/Day Years Used Date Smoking Tobacco: Never Assessed Comments Unknown Sex and Gender Information Value Date Recorded Sex Assigned at Not on file Legal Sex Female 3:53 AM PATIENT CARE NURSING ASSISTANT Gender Identity Not on file Sexual Orientation Not on file documented as of this encounter Plan of Treatment Upcoming Encounters Date Type Department Care Team (Late st Contact Info) Description 03/29/2025 9:00 AM PATIENT CARE NURSING ASSISTANT Office Visit [facility] Internal Medicine [facility] [address] [place] [address] [facility] [place] [address] Juan Smith MD [address] [place], [place] [address] [place], [place] [phone] 09/20/2025 11:00 AM CDT Office Visit [facility] Internal Medicine [facility] [address] [place] [address] [facility] [place] [address] Juan Smith MD [address] [place], [place] [address] [place], [place] [phone] documented as of this encounter Visit Diagnoses Not on filedocumented in this encounter Care Teams Human Resource Internship Relationship Specialty Start Date End Date Juan Smith MD [address] [place] [address] PCP - General 10/07/07 documented as of this encounter
--- OUTSIDE RECORDS SUMMARY | 2025-01-23 13:54 | XMS_ITS | Encounter Summary ---
Author Organization [facility] Address [address] [place] [address] Care Team Providers Care Public Space Attendant Name Role Phone Juan Smith MD Primary Care Provider Encounter Details Date Type Department Care Team (Late st Contact Info) Description 03/14/2007 Orders Only [facility] Internal Medicine Medical [place] [facility] [address] [place] [address] Juan Smith MD [address] [facility] [address] [place] [address] Social History Tobacco Use Types Packs/Day Years Used Date Smoking Tobacco: Never Assessed Comments Unknown Sex and Gender Information Value Date Recorded Sex Assigned at Not on file Legal Sex Female 3:53 AM TILE DECORATOR Gender Identity Not on file Sexual Orientation Not on file documented as of this encounter Progress Notes * Juan Smith MD - 09/01/2007 7:56 PM CDT TIME:10:48 am PATIENT`S HOME PHONE: PATIENT`S WORK PHONE: PATIENT`S INSURANCE: [employer] [facility] WHO TOOK THE CALL: Kelly Bridges M GENERAL INFORMATION PHARMACY NUMBER: [phone] SECTION 1: REQUESTED ACTION wiley 03/14/07 at 10:48 am: MEDICATION REQUEST: MEDICATION REQUEST: . MEDICATIONS: LOVASTATIN ORAL TABLET 20 MG, 1 Every Day, 90 Dispensed, 3 Fills, 90 Duration/Days Supply, status: CONTINUED, 01/03/2007. 06/23 also never received any feedback on sleep study....see pulmonary note in chart.. DOCTOR`S RESPONSE: diamante 03/14/07 at 06:24 pm MEDICATIONS: LOVASTATIN ORAL TABLET 20 MG, 1 Every Day, 90 Dispensed, 3 Fills, 90 Duration/Days Supply, status: CONTINUED, 03/14/2007. The sleep centers are resposible for the testing, setting up the CPAP trial, I received the initial note and they should have set up a second visit to sleep overnight and test the CPAP machine for her sleep apnea. did the sleep center arrange that? they need to but we can assist if necessary. FINAL ACTION: nolakj 03/14/07 at 06:52 pm Spoke with patient 03/14/07 at 06:52 pm. spoke with patient's and gave him above message.........sleep center has not called to set up second visit........they will call them tomorrow to set up f/u visit........told them to call us if they needed any assistance .........kn Called pharmacy at 03/14/07 at 06:54 pm. Electronically Signed by: Juan Smith MD on Thursday, March 15, 2007 documented in this encounter Plan of Treatment Upcoming Encounters Date Type Department Care Team (Late st Contact Info) Description 03/29/2025 9:00 AM TILE DECORATOR Office Visit [facility] Internal Medicine [address] [address] Juan Smith MD [address] [place] [address] 09/20/2025 11:00 AM CDT Office Visit [facility] Internal Medicine [facility] [address] [phone] Juan Smith MD [address] [place] [phone] documented as of this encounter Visit Diagnoses Not on filedocumented in this encounter Care Teams Public Space Attendant Relationship Specialty Start Date End Date Juan Smith MD [address] [place] [address] PCP - General 10/07/07 documented as of this encounter
--- OUTSIDE RECORDS SUMMARY | 2025-01-23 13:54 | XMS_ITS | Encounter Summary ---
Author Organization [facility] Address [address] [place] [address] Care Team Providers Care Claims Representative Name Role Phone Juan Smith MD Primary Care Provider Encounter Details Date Type Department Care Team (Late st Contact Info) Description 11/17/2006 Orders Only [facility] Internal Medicine [facility] [address] [facility] [address] [place] [address] Juan Smith MD [address] [place], [place] [address] [place] [address] Social History Tobacco Use Types Packs/Day Years Used Date Smoking Tobacco: Never Assessed Comments Unknown Sex and Gender Information Value Date Recorded Sex Assigned at Not on file Legal Sex Female 3:53 AM INSPECTOR WATER POLLUTION CONTROL Gender Identity Not on file Sexual Orientation Not on file documented as of this encounter Plan of Treatment Upcoming Encounters Date Type Department Care Team (Late st Contact Info) Description 03/29/2025 9:00 AM INSPECTOR WATER POLLUTION CONTROL Office Visit [facility] Internal Medicine [facility] [address] [facility] [address] [place] [address] Juan Smith MD [address] [place] [address] [address] [place] [address] 09/20/2025 11:00 AM CDT Office Visit [facility] Internal Medicine [facility] [address] [facility] [address] [place] [address] Juan Smith MD [address] [address] documented as of this encounter Visit Diagnoses Not on filedocumented in this encounter Care Teams Claims Representative Relationship Specialty Start Date End Date Juan Smith MD [address] [place] [address] PCP - General 10/07/07 documented as of this encounter
--- OUTSIDE RECORDS SUMMARY | 2025-01-23 13:54 | XMS_ITS | Encounter Summary ---
Author Organization [facility] Address [address] [place] [address] Care Team Providers Care Radio Communications Superintendent Name Role Phone Juan Smith MD Primary Care Provider Encounter Details Date Type Department Care Team (Late st Contact Info) Description 04/15/2007 Orders Only [facility] Internal Medicine Medical [place] [facility] [address] [place] [address] [address] [place] [address] Juan Smith MD [address] [facility] [address] [place], [place] [phone] Social History Tobacco Use Types Packs/Day Years Used Date Smoking Tobacco: Never Assessed Comments Unknown Sex and Gender Information Value Date Recorded Sex Assigned at Not on file Legal Sex Female 3:53 AM TYPE ROLLING MACHINE OPERATOR Gender Identity Not on file Sexual Orientation Not on file documented as of this encounter Progress Notes * Juan Smith MD - 09/01/2007 1:30 PM CDT TIME:10:41 am PATIENT`S HOME PHONE: PATIENT`S WORK PHONE: PATIENT`S INSURANCE: [facility] WHO TOOK THE CALL: Moira Peck R GENERAL INFORMATION ALTERNATIVE PHONE NUMBER: [phone] WHO CALLED: Patient called. CURRENT ALLERGY LIST: [facility] NUMBER: [phone] PROBLEMS: PAIN: Patient complains of abdominal pain. The onset was approximately 1 day ago. Patient complainsof pain in upper abdomen...she ate and then two hours later she felt pain but wasn't sharp....... hasn't eaten except for crackers...has vomited twice since yesterday......pain in middle of back...has n't been drinking fluids or taken OTC...isn't on any abx... SECTION 1: DOCTOR`S RESPONSE: diamante 04/15/07 at 12:46 pm MEDICATIONS: Call in to Pharmacy RANITIDINE HCL ORAL TABLET 150 MG, 1 bid prn, 60 Dispensed, 11 Fills, status: CONTINUED, 04/15/2007. if she is on this , change to prilosec otc, if not start this medicine and should get better in a few days. gall bladder can also do this and will be meal related, recurrent and will need to see surgeon, FINAL ACTION: [email or web address] 04/15/07 at 02:25 pm Spoke with patient 04/15/07 at 02:25 pm. documented in this encounter Plan of Treatment Upcoming Encounters Date Type Department Care Team (Late st Contact Info) Description 03/29/2025 9:00 AM TYPE ROLLING MACHINE OPERATOR Office Visit [facility] Internal Medicine [facility] [address] [facility] [address] [place] [address] Juan Smith MD [address] [place] [address] 09/20/2025 11:00 AM CDT Office Visit [facility] Internal Medicine [facility] [address] [facility] [address] [place] [phone] Juan Smith MD [address] [place] [address] documented as of this encounter Visit Diagnoses Not on filedocumented in this encounter Care Teams Radio Communications Superintendent Relationship Specialty Start Date End Date Juan Smith MD [address] [place] [address] PCP - General 10/07/07 documented as of this encounter
--- OUTSIDE RECORDS SUMMARY | 2025-01-23 13:54 | XMS_ITS | Encounter Summary ---
Author Organization [facility] Address [address] [place] [address] Care Team Providers Care Furniture Decals Inspector Name Role Phone Juan Smith MD Primary Care Provider [phone] Encounter Details Date Type Department Care Team (Late st Contact Info) Description 08/07/2003 Outpatient [facility] [address] [place], [place] [id number] Dharmesh Chris MD Social History Tobacco Use Types Packs/Day Years Used Date Smoking Tobacco: Never Assessed Comments Unknown Sex and Gender Information Value Date Recorded Sex Assigned at Not on file Legal Sex Female 3:53 AM PRODUCT MANAGER E COMMERCE Gender Identity Not on file Sexual Orientation Not on file documented as of this encounter Plan of Treatment Upcoming Encounters Date Type Department Care Team (Late st Contact Info) Description 03/29/2025 9:00 AM PRODUCT MANAGER E COMMERCE Office Visit [facility] Internal Medicine [facility] [address] [place] [address] [address] [facility] [place] [address] Juan Smith MD [address] [place], [place] [address] [place], [place] [id number] 09/20/2025 11:00 AM CDT Office Visit [facility] Internal Medicine [facility] [address] [place] [address] [address] [facility] [place] [address] Juan Smith MD [address] [place], [place] [address] [place], [place] [phone] documented as of this encounter Visit Diagnoses Not on filedocumented in this encounter Care Teams Furniture Decals Inspector Relationship Specialty Start Date End Date Juan Smith MD [address] [place] [address] PCP - General 10/07/07 documented as of this encounter
--- OUTSIDE RECORDS SUMMARY | 2025-01-23 13:54 | XMS_ITS | Encounter Summary ---
Author Organization [facility] Address [address] [place] [address] Care Team Providers Care Music Producer Name Role Phone Juan Smith MD Primary Care Provider Encounter Details Date Type Department Care Team (Late st Contact Info) Description 01/03/2007 Orders Only [facility] Internal Medicine [facility] [address] [facility] [address] [place] [address] Juan Smith MD [address] [place], [place] [address] [place] [address] Social History Tobacco Use Types Packs/Day Years Used Date Smoking Tobacco: Never Assessed Comments Unknown Sex and Gender Information Value Date Recorded Sex Assigned at Not on file Legal Sex Female 3:53 AM ICE SKATING COACH Gender Identity Not on file Sexual Orientation Not on file documented as of this encounter Plan of Treatment Upcoming Encounters Date Type Department Care Team (Late st Contact Info) Description 03/29/2025 9:00 AM ICE SKATING COACH Office Visit [facility] Internal Medicine [facility] [address] [facility] [address] [place] [address] Juan Smith MD [address] [place] [address] [address] [place] [address] 09/20/2025 11:00 AM CDT Office Visit [facility] Internal Medicine [facility] [address] [facility] [address] [place] [address] Juan Smith MD [address] [address] documented as of this encounter Visit Diagnoses Not on filedocumented in this encounter Care Teams Music Producer Relationship Specialty Start Date End Date Juan Smith MD [address] [place] [address] PCP - General 10/07/07 documented as of this encounter
--- OUTSIDE RECORDS SUMMARY | 2025-01-23 13:54 | XMS_ITS | Encounter Summary ---
Author Organization [facility] Address [address] [place] [address] Care Team Providers Care Bull Gang Supervisor Name Role Phone Juan Smith MD Primary Care Provider Encounter Details Date Type Department Care Team (Late st Contact Info) Description 02/16/2006 Orders Only [facility] Internal Medicine [facility] [address] [facility] [address] [place] [address] Juan Smith MD [address] [place], [place] [address] [place] [address] Social History Tobacco Use Types Packs/Day Years Used Date Smoking Tobacco: Never Assessed Comments Unknown Sex and Gender Information Value Date Recorded Sex Assigned at Not on file Legal Sex Female 3:53 AM COLLATOR Gender Identity Not on file Sexual Orientation Not on file documented as of this encounter Plan of Treatment Upcoming Encounters Date Type Department Care Team (Late st Contact Info) Description 03/29/2025 9:00 AM COLLATOR Office Visit [facility] Internal Medicine [facility] [address] [facility] [address] [place] [address] Juan Smith MD [address] [place] [address] [address] [place] [address] 09/20/2025 11:00 AM CDT Office Visit [facility] Internal Medicine [facility] [address] [facility] [address] [place] [address] Juan Smith MD [address] [address] documented as of this encounter Visit Diagnoses Not on filedocumented in this encounter Care Teams Bull Gang Supervisor Relationship Specialty Start Date End Date Juan Smith MD [address] [place] [address] PCP - General 10/07/07 documented as of this encounter
--- OUTSIDE RECORDS SUMMARY | 2025-01-23 13:54 | XMS_ITS | Encounter Summary ---
Author Organization [facility] Address [address] [place] [address] Care Team Providers Care Electric Motor And Generator Assembler Name Role Phone Juan Smith MD Primary Care Provider Encounter Details Date Type Department Care Team (Late st Contact Info) Description 06/20/2004 Outpatient Historical [facility] Internal Medicine Medical [place] [facility] [address] [place] [address] Juan Smith MD [address] [place] [address] Social History Tobacco Use Types Packs/Day Years Used Date Smoking Tobacco: Never Assessed Comments Unknown Sex and Gender Information Value Date Recorded Sex Assigned at Not on file Legal Sex Female 3:53 AM AVIONICS SHOP SUPERVISOR Gender Identity Not on file Sexual Orientation Not on file documented as of this encounter Last Filed Vital Signs Vital Sign Reading Time Taken Comments Blood Pressure 100/76 06/20/2004 10:45 AM AVIONICS SHOP SUPERVISOR Pulse 82 06/20/2004 10:45 AM AVIONICS SHOP SUPERVISOR Temperature 36.7 C (98 F) 06/20/2004 10:45 AM AVIONICS SHOP SUPERVISOR Respiratory Rate - - Oxygen Saturation - - Inhaled Oxygen Concentration - - Weight 99.8 kg (220 lb) 06/20/2004 10:45 AM AVIONICS SHOP SUPERVISOR Height - - Body Mass Index - - documented in this encounter Plan of Treatment Upcoming Encounters Date Type Department Care Team (Late st Contact Info) Description 03/29/2025 9:00 AM AVIONICS SHOP SUPERVISOR Office Visit [facility] Internal Medicine [facility] [address] [facility] [address] [facility] [place] [address] Juan Smith MD [address] [facility] [address] [place] [address] 09/20/2025 11:00 AM CDT Office Visit [facility] Internal Medicine Medical [place] [facility] [address] [facility] [address] [place] [address] Juan Smith MD [address] [facility] [address] [place] [address] documented as of this encounter Visit Diagnoses Not on filedocumented in this encounter Care Teams Electric Motor And Generator Assembler Relationship Specialty Start Date End Date Juan Smith MD [address] [place] [address] [address] [place] [address] PCP - General 10/07/07 documented as of this encounter
--- OUTSIDE RECORDS SUMMARY | 2025-01-23 13:54 | XMS_ITS | Encounter Summary ---
Author Organization [facility] Address [address] [place] [address] Care Team Providers Care Early Intervention School Psychologist Name Role Phone Juan Smith MD Primary Care Provider Encounter Details Date Type Department Care Team (Late st Contact Info) Description 05/04/2005 Orders Only [facility] Internal Medicine [facility] [address] [facility] [address] [place] [address] Juan Smith MD [address] [place], [place] [address] [place] [address] Social History Tobacco Use Types Packs/Day Years Used Date Smoking Tobacco: Never Assessed Comments Unknown Sex and Gender Information Value Date Recorded Sex Assigned at Not on file Legal Sex Female 3:53 AM COLLECTIONS DIRECTOR Gender Identity Not on file Sexual Orientation Not on file documented as of this encounter Plan of Treatment Upcoming Encounters Date Type Department Care Team (Late st Contact Info) Description 03/29/2025 9:00 AM COLLECTIONS DIRECTOR Office Visit [facility] Internal Medicine [facility] [address] [facility] [address] [place] [address] Juan Smith MD [address] [place] [address] [address] [place] [address] 09/20/2025 11:00 AM CDT Office Visit [facility] Internal Medicine [facility] [address] [facility] [address] [place] [address] Juan Smith MD [address] [address] documented as of this encounter Visit Diagnoses Not on filedocumented in this encounter Care Teams Early Intervention School Psychologist Relationship Specialty Start Date End Date Juan Smith MD [address] [place] [address] PCP - General 10/07/07 documented as of this encounter
--- OUTSIDE RECORDS SUMMARY | 2025-01-23 13:54 | XMS_ITS | Encounter Summary ---
Author Organization [facility] Address [address] [place] [address] Care Team Providers Care Reporting Analyst Name Role Phone Juan Smith MD Primary Care Provider Encounter Details Date Type Department Care Team (Late st Contact Info) Description 05/26/2007 Orders Only [facility] Internal Medicine Medical [place] [facility] [address] [place], [place] [address] [place] [address] Juan Smith MD [address] [facility] [address] [place], [place] [address] Social History Tobacco Use Types Packs/Day Years Used Date Smoking Tobacco: Never Assessed Comments Unknown Sex and Gender Information Value Date Recorded Sex Assigned at Not on file Legal Sex Female 3:53 AM RN MEDICATION Gender Identity Not on file Sexual Orientation Not on file documented as of this encounter Progress Notes * Juan Smith MD - 08/31/2007 11:09 AM CDT TIME:04:03 pm PATIENT`S HOME PHONE: PATIENT`S WORK PHONE: PATIENT`S INSURANCE: [employer] [facility] WHO TOOK THE CALL: Moira Peck R GENERAL INFORMATION ALTERNATIVE PHONE NUMBER: [phone] WHO CALLED: Patient called. CURRENT ALLERGY LIST: [facility] NUMBER: [phone] OTHER INFORMATION: Patient is not currently . Patient is not currently nursing. PROBLEMS: no other symptoms .....has taken robitussin cough, tylenol pm COUGH:Patient complains of cough. The symptoms began approximately 1 week ago. not productive...severe cough SORE THROAT: . irritated not sore SECTION 1: DOCTOR`S RESPONSE: diamante 05/26/07 at 05:12 pm any acid reflux? that can cause cough . if none , simple cough medicine and rx like viral. sgs MEDICATIONS: Call in to Pharmacy CHERATUSSIN AC ORAL SYRUP 100-10 MG/5ML FLUIDOUNCES, 1-2 TSP Q 4HRS prn cough, 8 Dispensed, status:NEW PRESCRIPTION, 05/26/2007. FINAL ACTION: harrca 05/26/07 at 05:25 pm Spoke with patient 05/26/07 at 05:25 pm. Called pharmacy at 05/26/07 at 05:25 pm. documented in this encounter Plan of Treatment Upcoming Encounters Date Type Department Care Team (Late st Contact Info) Description 03/29/2025 9:00 AM RN MEDICATION Office Visit [facility] Internal Medicine [facility] [address] [place] [phone] Juan Smith MD [address] [place] [address] 09/20/2025 11:00 AM CDT Office Visit [facility] Internal Medicine [facility] [address] [facility] [address] [place] [address] Juan Smith MD [address] [place] [address] documented as of this encounter Visit Diagnoses Not on filedocumented in this encounter Care Teams Reporting Analyst Relationship Specialty Start Date End Date Juan Smith MD [address] [place] [address] PCP - General 10/07/07 documented as of this encounter
--- OUTSIDE RECORDS SUMMARY | 2025-01-23 13:54 | XMS_ITS | Encounter Summary ---
Author Organization [facility] Address [address] [place] [address] Care Team Providers Care Industrial Technology Teacher Name Role Phone Juan Smith MD Primary Care Provider Encounter Details Date Type Department Care Team (Late st Contact Info) Description 06/01/2007 Orders Only [facility] Internal Medicine Medical [place] [facility] [address] [place] [address] Juan Smith MD [facility] [address] [place] [address] Social History Tobacco Use Types Packs/Day Years Used Date Smoking Tobacco: Never Assessed Comments Unknown Sex and Gender Information Value Date Recorded Sex Assigned at Not on file Legal Sex Female 3:53 AM SENIOR BIOSTATISTICIAN/GROUP LEADER Gender Identity Not on file Sexual Orientation Not on file documented as of this encounter Progress Notes * Juan Smith MD - 08/31/2007 12:51 PM CDT TIME:11:18 am PATIENT`S HOME PHONE: PATIENT`S WORK PHONE: PATIENT`S INSURANCE: [employer] [facility] WHO TOOK THE CALL: Moira Peck R GENERAL INFORMATION ALTERNATIVE PHONE NUMBER: [phone] WHO CALLED: Patient called. CURRENT ALLERGY LIST: [facility]ACY NUMBER: [phone] PROBLEMS: pt has taken cheratussin, advil, tylenol pm, and robitussin cough gels......wanted to know if she can get z najma COUGH:Patient complains of cough. The symptoms began approximately 6 days ago. pt says her cough has gotten worse..not productive ....chest pressure from cough.....sweats and chills, no fever.... EARACHE: . ears clogged RUNNY NOSE: Patient complains of runny nose. SORE THROAT: Patient complains of sore throat. mild SECTION 1: DOCTOR`S RESPONSE: diamante 06/01/07 at 02:04 pm MEDICATIONS: Call in to Pharmacy ZITHROMAX Z-NAJMA ORAL TABLET 250 MG, DIRECTED, 1 Dispensed, status: NEW PRESCRIPTION, 06/01/2007. FINAL ACTION: [email or web address] 06/01/07 at 03:12 pm Spoke with patient 06/01/07 at 03:12 pm. Called pharmacy at 06/01/07 at 03:12 pm. documented in this encounter Plan of Treatment Upcoming Encounters Date Type Department Care Team (Late st Contact Info) Description 03/29/2025 9:00 AM SENIOR BIOSTATISTICIAN/GROUP LEADER Office Visit [facility] Internal Medicine [facility] [address] [place] [phone] Juan Smith MD [address] [place] [address] 09/20/2025 11:00 AM CDT Office Visit [facility] Internal [facility] [address] [address] Juan Smith MD [address] [place] [address] documented as of this encounter Visit Diagnoses Not on filedocumented in this encounter Care Teams Industrial Technology Teacher Relationship Specialty Start Date End Date Juan Smith MD [address] [place] [address] PCP - General 10/07/07 documented as of this encounter
--- OUTSIDE RECORDS SUMMARY | 2025-01-23 13:54 | XMS_ITS | Encounter Summary ---
Author Organization [facility] Address [address] [place] [address] Care Team Providers Care Spud Sorter Name Role Phone Juan Smith MD Primary Care Provider Encounter Details Date Type Department Care Team (Late st Contact Info) Description 09/10/2005 Orders Only [facility] Internal Medicine Medical [place] A [facility] [address] [place] [phone] Juan Smith MD [address] [place] [address] [address] [place], [place] [phone] Social History Tobacco Use Types Packs/Day Years Used Date Smoking Tobacco: Never Assessed Comments Unknown Sex and Gender Information Value Date Recorded Sex Assigned at Not on file Legal Sex Female 3:53 AM PERSONAL INJURY PARALEGAL Gender Identity Not on file Sexual Orientation Not on file documented as of this encounter Progress Notes * Juan Smith MD - 01/27/2008 5:37 AM CDT TIME:11:09 am PATIENT`S HOME PHONE: PATIENT`S WORK PHONE: PATIENT`S INSURANCE: WHO TOOK THE CALL: Janny Kiran R GENERAL INFORMATION PATIENT STATUS: Established Patient. LAST VISIT: 06.20.04 ALTERNATIVE PHONE NUMBER: [phone] / [phone] WHO CALLED: Patient called. CURRENT ALLERGY LIST: [facility] NUMBER: [phone] PROBLEMS: SECTION 1: REQUESTED ACTION ramesh 09/10/05 at 11:09 am: MEDICATION REQUEST: MEDICATIONS: LOVASTATIN ORAL TABLET 20 MG, 1 Every Day, 30 Dispensed, 11 Fills, 90 Duration/Days Supply, status:CONTINUED, 08/06/2004. DOCTOR`S RESPONSE: diamante 09/10/05 at 12:44 pm MEDICATIONS: Call in to Pharmacy LOVASTATIN ORAL TABLET 20 MG, 1 Every Day, 30 Dispensed, 11 Fills, 90 Duration/Days Supply, status:CONTINUED, 09/10/2005. FINAL ACTION: [email or web address] 09/10/05 at 01:11 pm Spoke with patient 09/10/05 at 01:11 pm. / jrm Called pharmacy at 09/10/05 at 01:13 pm. / jr SECTION 2: pt is also wanting labs done prior to appt / jrm SECTION 3: ok.sgs DOCTOR`S RESPONSE: diamante 09/10/05 at 04:56 pm PT PROBLEMS & ORDERS: 272.4-HYPERLIPIDEMIA LAB ORDERS: Order number: [id number] Test Ordered: BASIC METABOLIC PANEL & GFR 1608 Order number: [id number] Test Ordered: ALT 1294 Order number: [id number] Test Ordered: LIPID PANEL 1078 Order number: [id number] Test Ordered: TSH 1720 printed to [facility] verify lab and insurance. documented in this encounter Plan of Treatment Upcoming Encounters Date Type Department Care Team (Late st Contact Info) Description 03/29/2025 9:00 AM PERSONAL INJURY PARALEGAL Office Visit [facility] Internal Medicine [address] [place] [phone] Juan Smith MD [address] [place] [phone] 09/20/2025 11:00 AM CDT Office Visit [facility] Internal Medicine [facility] [address] [place] [address] [place] [phone] Juan Smith MD [address] [place] [address] [place] [phone] documented as of this encounter Visit Diagnoses Not on filedocumented in this encounter Care Teams Spud Sorter Relationship Specialty Start Date End Date Juan Smith MD [address] [place] [address] PCP - General 10/07/07 documented as of this encounter
--- OUTSIDE RECORDS SUMMARY | 2025-01-23 13:54 | XMS_ITS | Encounter Summary ---
Author Organization [facility] Address [address] [place] [address] Care Team Providers Care Longshore Equipment Operator Name Role Phone Juan Smith MD Primary Care Provider Encounter Details Date Type Department Care Team (Late st Contact Info) Description 10/11/2003 Outpatient [facility] [address] 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 Gender Identity Not on file Sexual Orientation Not on file documented as of this encounter Plan of Treatment Upcoming Encounters Date Type Department Care Team (Late st Contact Info) Description 03/29/2025 9:00 AM STEAM PRESSURE CHAMBER OPERATOR Office Visit [facility] Internal Medicine [facility] [address] [address] [place] [address] Juan Smith MD [address] [place] [address] [address] [address] 09/20/2025 11:00 AM CDT Office Visit [facility] Internal Medicine [facility] A [facility] [address] [facility] [address] [place] [address] Juan Smith MD [address] [place] [address] documented as of this encounter Visit Diagnoses Not on filedocumented in this encounter Care Teams Longshore Equipment Operator Relationship Specialty Start Date End Date Juan Smith MD [address] [place] [address] [address] [place], [place] [phone] PCP - General 10/07/07 documented as of this encounter
--- OUTSIDE RECORDS SUMMARY | 2025-01-23 13:54 | XMS_ITS | Encounter Summary ---
Author Organization [facility] Address 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 ATTENDANT Gender Identity Not on file Sexual Orientation Not on file documented as of this encounter Plan of Treatment Upcoming Encounters Date Type Department Care Team (Late st Contact Info) Description 03/29/2025 9:00 AM DOG DAY CARE ATTENDANT Office Visit [facility] Internal Medicine [facility] [address] [facility] [address] [place] [phone] Juan Smith MD [address] [place] [address] 09/20/2025 11:00 AM CDT Office Visit [facility] Internal Medicine [facility] [address] [facility] [address] [facility] [address] [place] [phone] Juan Smith MD [address] [place], [place] [address] [place], [place] [phone] documented as of this encounter Procedures Procedure Name Priority Date/Time Associated Diagnosis Comments CT ABDOMEN PELVIS WO CONTRAST Routine 08/11/2007 10:45 AM CDT documented in this encounter Results * CT ABDOMEN PELVIS WO CONTRAST (08/11/2007 10:45 AM CDT) Anatomical Region Laterality Modality Abdomen Other 08/11/2007 10:4 5 AM CDT Narrative 08/12/2007 7:39 AM CDT [facility] [address] [place], [place] [address] Admit Date: 08/11/2007 NAPOLEON LANDRUM Perfecto Sex: F Admit Prov: NIKKI MCCAIN Date: 1965 Primary Care Prov: MANUEL JUAN Kwasi CMRN: [id number] Room: [facility] SSN: [id number] IMAGING SERVICES Ordering Prov: N/A Accession Number: [id number] Interpretation EXAM: CT OF THE ABDOMEN AND PELVIS WITHOUT CONTRAST 08/11/2007 History: Kidney stones. Possible renal cyst. Technique: CT of the abdomen and pelvis is performed without intravenous contrast. Oral contrast is not administered. Continuous spiral imaging is performed from above the diaphragm to below the symphysis pubis. Images are reconstructed in the axial plane at 5 mm intervals. Lung, liver, soft tissue and bone windows are reviewed. Note: Examination is performed to evaluate for renal or ureteral stone disease. It is noted that on the ordering form, CT urogram is possibly requested; however, the without contrast portion of the form is circled. If formal CT urogram with contrast is what is actually desired; the followup contrast portion can be performed at another exam. Findings: Lung bases are clear. The liver, spleen, pancreas, and adrenal glands are unremarkable on this noncontrast exam. Gallstone is noted. There is no bile duct dilatation. The kidneys are unremarkable on this noncontrast exam. No renal cyst is identified. There is no hydronephrosis. No renal stone or obstruction is seen. The ureters are normal in caliber and no ureteral stone or obstruction is seen. The uterus and right adnexa are unremarkable. There is a large fluid density lesion in the left pelvis which measures 9.4 cm in transverse dimension by 8.8 cm in AP dimension by 11.9 cm in craniocaudal dimension. This lesion is inferior to the left kidney and there is clear separation from the left kidney. This lesion arises from the left adnexa and most likely represents a very large left ovarian cyst. Further evaluation with pelvic ultrasound is recommended. No bowel obstruction, free air, or acute inflammatory process is seen. There is no additional finding. Impression: Very large left adnexal cyst which most likely represents very large left ovarian cyst. Further evaluation with pelvic ultrasound is recommended. Lesion in left pelvis is clearly separate from the left kidney. No left renal cyst is identified. The kidneys and urinary tract are otherwise unremarkable on this noncontrast exam with no stone disease noted. Cholelithiasis is noted. There is no bile duct dilatation. There is no additional finding. . Dictated by: MAGED GONZALEZ 08/11/2007 11:17 Electronically signed by: MAGED GONZALEZ 08/12/2007 07:39 Transcribed: 08/11/2007 12:37 SJ Procedure Note Maged Gonzalez - 08/12/2007 [facility] [address] [place], [place] [address] Admit Date: 08/11/2007 ERMALaurenNAPOLEON Sex: F Admit Prov: NIKKI MCCAIN Tab Date: 1965 Primary Care Prov: JUAN SMITH Kwasi CMRN: [id number] Room: [facility] SSN: [id number] IMAGING SERVICES Ordering Prov: N/A Interpretation EXAM: CT OF THE ABDOMEN AND PELVIS WITHOUT CONTRAST 08/11/2007 History: Kidney stones. Possible renal cyst. Technique: CT of the abdomen and pelvis is performed withoutintravenous contrast. Oral contrast is not administered. Continuous spiralimaging is performed from above the diaphragm to below the symphysis pubis.Images are reconstructed in the axial plane at 5 mm intervals. Lung, liver,soft tissue and bone windows are reviewed. Note: Examination is performed to evaluate for renal or ureteralstone disease. It is noted that on the ordering form, CT urogram ispossibly requested; however, the without contrast portion of the form iscircled. If formal CT urogram with contrast is what is actually desired; thefollowup contrast portion can be performed at another exam. Findings: Lung bases are clear. The liver, spleen, pancreas, andadrenal glands are unremarkable on this noncontrast exam. Gallstone is noted.There is no bile duct dilatation. The kidneys are unremarkable on this noncontrast exam. No renal cyst is identified. There is nohydronephrosis. No renal stone or obstruction is seen. The ureters are normal incaliber and no ureteral stone or obstruction is seen. The uterus and right adnexa are unremarkable. There is a large fluid density lesion in the left pelvis whichmeasures 9.4 cm in transverse dimension by 8.8 cm in AP dimension by 11.9 cm in craniocaudal dimension. This lesion is inferior to the left kidneyand there is clear separation from the left kidney. This lesion arisesfrom the left adnexa and most likely represents a very large left ovariancyst. Further evaluation with pelvic ultrasound is recommended. No bowel obstruction, free air, or acute inflammatory process is seen. Thereis no additional finding. Impression: Very large left adnexal cyst which most likely represents very largeleft ovarian cyst. Further evaluation with pelvic ultrasound isrecommended. Lesion in left pelvis is clearly separate from the left kidney. Noleft renal cyst is identified. The kidneys and urinary tract areotherwise unremarkable on this noncontrast exam with no stone disease noted. Cholelithiasis is noted. There is no bile duct dilatation. There is no additional finding. . Dictated by: MAGED GONZALEZ 08/11/2007 11:17 Electronically signed by: MAGED GONZALEZ 08/12/2007 07:39 Transcribed: 08/11/2007 12:37 SJ us Nikki Mccain MD CT ORDERABLES Final Resu lt documented in this encounter Visit Diagnoses Not on filedocumented in this encounter Care Teams Legal Coordinator Relationship Specialty Start Date End Date Juan Smith MD [address] [place], [place] [address] [place] [address] PCP - General 10/07/07 documented as of this encounter
--- OUTSIDE RECORDS SUMMARY | 2025-01-23 13:54 | XMS_ITS | Encounter Summary ---
Author Organization [facility] Address [address] [place] [address] Care Team Providers Care Pouch Making Machine Operator Name Role Phone Juan Smith MD Primary Care Provider [phone] Encounter Details Date Type Department Care Team (Late st Contact Info) Description 10/05/2005 Orders Only [facility] Internal Medicine Medical [place] A [facility] [address] [place] [address] [address] [place] [address] Juan Smith MD [address] [facility] [address] [place], [place] [phone] Social History Tobacco Use Types Packs/Day Years Used Date Smoking Tobacco: Never Assessed Comments Unknown Sex and Gender Information Value Date Recorded Sex Assigned at Not on file Legal Sex Female 3:53 AM PHYSICIAN PRACTICE MANAGER Gender Identity Not on file Sexual Orientation Not on file documented as of this encounter Progress Notes * Juan Smith MD - 01/27/2008 8:09 AM CDT BLOOD PRESSURE: 130/94 Left Arm Sitting TEMPERATURE: 97??f Oral PULSE: 74 Left Radial, Regular WEIGHT: 234lbs NURSE NAME: Angelia Flores A ALLERGIES: Allergies were reviewed. MEDICATIONS: RN/MA reviewed medications. CHIEF COMPLAINT Here for follow up evaluation.HAD BLOOD WORK THIS AM. HISTORY: HISTORY: 272.4-HYPERLIPIDEMIA The patient has gained weight. The patient is compliant with the low saturatedfat diet. The patient`s exercise has increased. The patient is tolerating the medications. 530.81-GASTROESOPHAGEAL REFLUX (GERD) The patient's dyspeptic symptoms have improved. The patient denies any significant abdominal pain, nausea, vomiting, indigestion, bloating, or water brash. No complications noted from the medication presently being used. CURRENT MEDICATION LIST: FLUOXETINE HCL ORAL CAPSULE CONVENTIONAL 10 MG, 1 Every Day LOVASTATIN ORAL TABLET 20 MG, 1 Every Day RANITIDINE HCL ORAL TABLET 150 MG, 1 Every Day, As Needed ROS: GENERAL: Normal activity and energy level, [...] APPEARANCE: Healthy appearing patient in no distress. EARS, NOSE, MOUTH AND THROAT: EARS: Tympanic membranes shiny without retraction. Canals unremarkable. Hearing grossly normal. NOSE (AND SINUS): No abnormality of the nose or sinuses is noted. ORAL: Inspection of gums, lips, palate, and teeth normal. No scars, lesions, or masses. Oral mucosaunremarkable with non-inflamed posterior pharynx. NECK/THYROID: Trachea midline. No thyroid enlargement, tenderness, or mass. No supraclavicular or cervical adenopathy. RESPIRATORY: Clear to auscultation and percussion. Normal respiratory effort. CARDIOVASCULAR: CARDIAC: Regular rhythm. No murmurs, rubs, or gallops. ARTERIAL: Aortic pulses of normal amplitude with no bruits. EDEMA/VARICOSITIES OF EXTREMITIES: No edema or varicosities. GASTROINTESTINAL: ABDOMEN: Soft, non-tender, without masses. Bowel sounds active. LIVER/SPLEEN/KIDNEY: No hepatosplenomegaly, tenderness or nodularity. Kidneys not palpable. ASSESSMENT/PLAN: 272.4-HYPERLIPIDEMIA ASSESSMENT: Will not change medication, continue to monitor for complications. A low cholesterol diet was encouraged. Regular aerobic exercise was encouraged. Will check laboratory to assess disease effect, for possible medication adjustment, to assess medication effect. Clinical guidelines reviewed. CLINICAL GUIDELINES: Cardiovascular clinical guidelines reviewed, diabetes mellitus, hypercholesterolemia. 530.81-GASTROESOPHAGEAL REFLUX (GERD) ASSESSMENT: The patient's reflux esophagitis continues to remain stable. Will not change medication, continue to monitor for complications. REPEAT VITAL SIGNS: BLOOD PRESSURE: 134/84. Right Arm Sitting HEALTH MAINTENANCE: LAST PAP DATE: 2004. PAP SMEAR PROVIDER: LEDA. LAST DATE PELVIC EXAM: 2004. PREVENTIVE COUNSELING The patient was counseled regarding diet, regular sustained exercise for at least 30 minutes 3-4 times per week, screening procedures and recommended schedules for mammography, GI hemoccult testing, colonoscopy,cholesterol, thyroid and diabetes screening. RETURN VISIT : Patient instructed to return in 6 months. Electronically Signed by: Juan Smith MD on Wednesday, October 05, 2005 documented in this encounter Plan of Treatment Upcoming Encounters Date Type Department Care Team (Late st Contact Info) Description 03/29/2025 9:00 AM PHYSICIAN PRACTICE MANAGER Office Visit [facility] Internal Medicine [address] [phone] Juan Smith MD [address] [place] [address] 09/20/2025 11:00 AM CDT Office Visit [facility] [address] [facility] [address] [address] Juan Smith MD [address] [place] [address] documented as of this encounter Visit Diagnoses Not on filedocumented in this encounter Care Teams Pouch Making Machine Operator Relationship Specialty Start Date End Date Juan Smith MD [address] [place] [address] PCP - General 10/07/07 documented as of this encounter
--- OUTSIDE RECORDS SUMMARY | 2025-01-23 13:54 | XMS_ITS | Encounter Summary ---
Author Organization [facility] Address [address] [place] [address] Care Team Providers Care Economic Analysis Director Name Role Phone Juan Smith MD Primary Care Provider Encounter Details Date Type Department Care Team (Late st Contact Info) Description 05/25/2006 Orders Only [facility] Internal Medicine [facility] [address] [facility] [address] [place] [address] Juan Smith MD [address] [place], [place] [address] [place] [address] Social History Tobacco Use Types Packs/Day Years Used Date Smoking Tobacco: Never Assessed Comments Unknown Sex and Gender Information Value Date Recorded Sex Assigned at Not on file Legal Sex Female 3:53 AM PEDIATRIC CLINICAL DIETICIAN Gender Identity Not on file Sexual Orientation Not on file documented as of this encounter Plan of Treatment Upcoming Encounters Date Type Department Care Team (Late st Contact Info) Description 03/29/2025 9:00 AM PEDIATRIC CLINICAL DIETICIAN Office Visit [facility] Internal Medicine [facility] [address] [facility] [address] [place] [address] Juan Smith MD [address] [place] [address] [address] [place] [address] 09/20/2025 11:00 AM CDT Office Visit [facility] Internal Medicine [facility] [address] [facility] [address] [place] [address] Juan Smith MD [address] [address] documented as of this encounter Visit Diagnoses Not on filedocumented in this encounter Care Teams Economic Analysis Director Relationship Specialty Start Date End Date Juan Smith MD [address] [place] [address] PCP - General 10/07/07 documented as of this encounter
== END 2025-01-23 13:18 | disposition home or self-care (01) ==
PROVIDERS: Emergency Provider Emergency Medicine
DX: S80.02XA Contusion of left knee, initial encounter (principal); S80.01XA Contusion of right knee, initial encounter; S00.83XA Contusion of other part of head, initial encounter; V49.40XA Driver injured in collision with unspecified motor vehicles in traffic accident, initial encounter
CPT/HCPCS: 70450; 70486; 73562; 99284